=== PATIENT | female | born 1975 | race Caucasian/White ===

== ENCOUNTER → 2016-05-09 | Outpatient (REF) | payer OTHER | LOC: M LAB REF 16:55 | PROVIDERS: ATTEND Physician Assistant Medical | DX: R30.0 Dysuria (principal) ==

== ENCOUNTER → 2016-08-10 | Outpatient (REF) | payer OTHER | LOC: M LAB REF 16:51 | PROVIDERS: ATTEND Specialist | DX: Z12.4 Encounter for screening for malignant neoplasm of cervix (principal) ==

== ENCOUNTER → 2017-03-23 | Outpatient (REF) | payer OTHER ==
[2017-03-23 13:26] LABS: ALBUMIN 3.8 GM/DL (3.2-5.2); ALBUMIN/GLOBULIN RATIO 1.06 (1.00-1.93); ALKALINE PHOSPHATASE 49 U/L (45-117); ALT/SGPT 19 U/L (12-78); ANION GAP 8 MEQ/L (8-16); AST/SGOT 10 U/L (7-37); BILIRUBIN,TOTAL 0.3 MG/DL (0.2-1.0); BLOOD UREA NITROGEN 14 MG/DL (7-18); CALCIUM LEVEL 8.6 MG/DL (8.5-10.1); CARBON DIOXIDE LEVEL 27 MEQ/L (21-32); CHLORIDE LEVEL 104 MEQ/L (98-107); CHOLESTEROL LEVEL 163 MG/DL (<200); CREATININE FOR GFR 0.81 MG/DL (0.55-1.02); GLOMERULAR FILTRATION RATE > 60.0 (>58); GLUCOSE, FASTING 113 MG/DL (70-105); POTASSIUM SERUM 4.3 MEQ/L (3.5-5.1); SODIUM LEVEL 139 MEQ/L (136-145); TOTAL PROTEIN 7.4 GM/DL (6.4-8.2); TRIGLYCERIDES LEVEL 259 MG/DL (<150)
== END ==
LOC: M LABDRAW1 11:05
PROVIDERS: ATTEND Family Medicine
DX: Z00.00 Encounter for general adult medical examination without abnormal findings (principal)

== ENCOUNTER → 2017-06-12 | Outpatient (CLI) | payer OTHER ==
[2017-06-12 20:01] LABS: HCG, SERUM QUANTITATIVE 6 MIU/ML
== END ==
LOC: M SMT 14:18
DX: O20.0 Threatened abortion (principal)
CPT/HCPCS: 84702

== ENCOUNTER → 2017-06-15 | Outpatient (CLI) | payer OTHER ==
[2017-06-15 14:08] LABS: HCG, SERUM QUANTITATIVE < 1.0 MIU/ML
== END ==
LOC: M SMT 08:12
DX: O20.0 Threatened abortion (principal)
CPT/HCPCS: 84702

== ENCOUNTER → 2018-03-26 | Outpatient (REF) | payer OTHER, SELFPAY ==
[2018-03-26 13:25] LABS: BLOOD UREA NITROGEN 15 MG/DL (7-18); CARBON DIOXIDE LEVEL 25 MEQ/L (21-32); CHLORIDE LEVEL 106 MEQ/L (98-107); CREATININE FOR GFR 0.91 MG/DL (0.55-1.30); GLOMERULAR FILTRATION RATE > 60.0 (>58); GLUCOSE, FASTING 108 MG/DL (70-100); POTASSIUM SERUM 4.7 MEQ/L (3.5-5.1); SODIUM LEVEL 140 MEQ/L (136-145)
[2018-03-26 13:26] LABS: ALBUMIN 3.6 GM/DL (3.2-5.2); ALBUMIN/GLOBULIN RATIO 1.03 (1.00-1.93); ALKALINE PHOSPHATASE 56 U/L (45-117); ALT/SGPT 21 U/L (12-78); ANION GAP 9 MEQ/L (8-16); AST/SGOT 16 U/L (7-37); BILIRUBIN,TOTAL 0.3 MG/DL (0.2-1.0); CALCIUM LEVEL 8.5 MG/DL (8.5-10.1); CHOLESTEROL LEVEL 154 MG/DL (<200); CHOLESTEROL RISK RATIO 4.967 (<5); HDL CHOLESTEROL 31 MG/DL (>40); LDL CHOLESTEROL 79 MG/DL (<100); NON-HDL-C 123 MG/DL; TOTAL PROTEIN 7.1 GM/DL (6.4-8.2); TRIGLYCERIDES LEVEL 219 MG/DL (<150)
[2018-03-26 14:21] LABS: ESTIMATED AVERAGE GLUCOSE 131 MG/DL (60-110); HEMOGLOBIN A1c 6.2 %
== END ==
LOC: M LABDRAW1 09:18
DX: Z00.00 Encounter for general adult medical examination without abnormal findings (principal)
CPT/HCPCS: 80053

== ENCOUNTER → 2018-05-16 | Outpatient (REF) | payer OTHER ==
[2018-05-16 13:36] LABS: BASO % 0.5 % (0.0-1.0); EOS # 0.2 10^3/uL (0.0-0.50); EOS % 3.3 % (0.0-3.0); HEMATOCRIT 38.4 % (36.0-47.0); HEMOGLOBIN 13.3 g/dl (12.0-15.5); LYMPH # 2.2 10^3/uL (1.5-4.5); LYMPH % 33.6 % (24.0-44.0); MEAN CORPUSCULAR HEMOGLOBIN 30.8 pg (27.0-33.0); MEAN CORPUSCULAR HGB CONC 34.6 g/dl (32.0-36.5); MEAN CORPUSCULAR VOLUME 88.9 fl (80.0-96.0); MONO # 0.8 10^3/uL (0.0-0.8); MONO % 11.8 % (0.0-5.0); NEUTROPHILS # 3.3 10^3/uL (1.8-7.7); NEUTROPHILS % 50.3 % (36.0-66.0); PLATELET COUNT, AUTOMATED 310 10^3/uL (150-450); RED BLOOD COUNT 4.32 10^6/uL (4.00-5.40); WHITE BLOOD COUNT 6.6 10^3/uL (4.0-10.0)
[2018-05-16 14:00] LABS: ALBUMIN 4.1 GM/DL (3.2-5.2); ALT/SGPT 26 U/L (12-78); BILIRUBIN,TOTAL 0.5 MG/DL (0.2-1.0); BLOOD UREA NITROGEN 12 MG/DL (7-18); CALCIUM LEVEL 9.1 MG/DL (8.5-10.1); CARBON DIOXIDE LEVEL 28 MEQ/L (21-32); CHLORIDE LEVEL 102 MEQ/L (98-107); CREATININE FOR GFR 0.78 MG/DL (0.55-1.30); GLOMERULAR FILTRATION RATE > 60.0 (>58); GLUCOSE, FASTING 91 MG/DL (70-100); POTASSIUM SERUM 4.3 MEQ/L (3.5-5.1); SODIUM LEVEL 139 MEQ/L (136-145); TOTAL PROTEIN 7.8 GM/DL (6.4-8.2)
== END ==
LOC: M LABDRAW1 12:15
PROVIDERS: ATTEND Family Medicine
DX: R10.31 Right lower quadrant pain (principal)

== ENCOUNTER → 2018-06-28 | Outpatient (REF) | payer OTHER ==
[2018-06-28 14:41] LABS: HEMOGLOBIN A1c 5.9 %
== END ==
LOC: M LABDRAW1 12:40
PROVIDERS: ATTEND Family Medicine
DX: R73.01 Impaired fasting glucose (principal)

== ENCOUNTER → 2019-01-02 | Outpatient (CLI) | payer OTHER ==
[2019-01-02 09:48] LABS: BASO % 0.2 % (0.0-1.0); EOS # 0.1 10^3/uL (0.0-0.5); EOS % 1.5 % (0.0-3.0); HEMATOCRIT 38.1 % (36.0-47.0); LYMPH # 2.3 10^3/uL (1.5-5.0); LYMPH % 24.1 % (24.0-44.0); MEAN CORPUSCULAR HEMOGLOBIN 30.7 pg (27.0-33.0); MEAN CORPUSCULAR HGB CONC 34.1 g/dl (32.0-36.5); MEAN CORPUSCULAR VOLUME 90.1 fl (80.0-96.0); MONO # 0.5 10^3/uL (0.0-0.8); MONO % 5.8 % (0.0-5.0); NEUTROPHILS # 6.3 10^3/uL (1.5-8.5); NEUTROPHILS % 67.7 % (36.0-66.0); PLATELET COUNT, AUTOMATED 295 10^3/uL (150-450); RED BLOOD COUNT 4.23 10^6/uL (4.00-5.40); WHITE BLOOD COUNT 9.4 10^3/uL (4.0-10.0)
[2019-01-02 10:16] LABS: CREATININE,RANDOM URINE 39.2 MG/DL; TOTAL PROTEIN,RANDOM URINE 6.4 MG/DL (0.0-12.0)
[2019-01-02 10:19] LABS: ALT/SGPT 16 U/L (12-78); BILIRUBIN,TOTAL 0.3 MG/DL (0.2-1.0); GLOMERULAR FILTRATION RATE > 60.0 (>58); GLUCOSE CHALLENGE TEST 1 HOUR 185 MG/DL (LESS THAN 140); LDH LACTATE DEHYDROGENASE 145 U/L (84-246); URIC ACID 5.5 MG/DL (2.6-6.0)
[2019-01-02 10:25] LABS: HEMOGLOBIN A1c 5.8 %
[2019-01-02 10:36] LABS: RUBELLA IgG QUALITATIVE SUSCEPTIBLE (IMMUNE)
[2019-01-02 11:04] LABS: HEPATITIS C VIRUS ABY INDEX 0.1 INDEX (<0.8)
[2019-01-02 11:05] LABS: HIV 1&2 SCREEN CENTAUR NEGATIVE (NEGATIVE)
[2019-01-02 13:02] LABS: CHLAMYDIA DNA AMPLIFICATION NEGATIVE (NEGATIVE); GC DNA AMPLIFICATION NEGATIVE (NEGATIVE)
== END ==
LOC: M LAB 08:05
PROVIDERS: ATTEND Advanced Practice Midwife
DX: Z34.81 Encounter for supervision of other normal pregnancy, first trimester (principal)

== ENCOUNTER → 2019-01-14 | Outpatient (CLI) | payer OTHER | LOC: M LAB 07:13 | PROVIDERS: ATTEND Advanced Practice Midwife | DX: O09.522 Supervision of elderly multigravida, second trimester (principal) ==

== ENCOUNTER → 2019-01-28 | Outpatient (CLI) | payer OTHER, SELFPAY ==
--- NOTE | 2019-01-29 08:11 | REP ---
Obstetric ultrasound for anatomy: There is a single intrauterine gestation in a vertex presentation. There is movement and cardiac activity. The heart rate is 153 beats per minute. The placenta is posterior. There is no previa or abruptio. The placenta is grade zero. The amniotic fluid volume subjectively is normal. The cervix measures 6.1 cm length. Gestational age by today's study is 19 weeks 6 days/JERRY 06/18/2019. Gestational age by LMP is 19 weeks 3 days/JERRY 06/21/2019. weight is 330 grams/0 pounds, 11 ounces. This is the 71st percentile for 19 weeks 3 days. The following anatomic structures are identified and are unremarkable: Cranium, choroid plexus, cavum septum pellucidum, cerebellum, diaphragm, stomach, cord insertion, three-vessel cord, kidneys, bladder, spine and upper lower extremities. Suboptimally demonstrated because of position are: Facial features, lungs, four-chamber heart and cardiac right and left ventricular outflow tracts. A followup study dedicated to these structures might be considered. Electronically Signed by Woody Graham MD 01/29/2019 08:03 A
== END ==
LOC: M RAD 17:17
PROVIDERS: ATTEND Advanced Practice Midwife
DX: O09.522 Supervision of elderly multigravida, second trimester (principal)

== ENCOUNTER → 2019-02-15 | Outpatient (CLI) | payer OTHER ==
--- NOTE | 2019-02-16 07:58 | REP ---
OB ULTRASOUND: Real-time sonographic evaluation of gravid uterus performed. Transabdominal and endovaginal technique is utilized. There is a single living intrauterine gestation, estimated gestational age 22 weeks 0 days, EDC 06/21/2019. Today's measurements indicate appropriate growth. BPD 54 mm = 22 weeks 3 days, 61st percentile HC 205 mm = 22 weeks 4 days, 69th percentile AC 166 mm = 21 weeks 4 days, 41st percentile Femur length 36 mm = 21 weeks 3 days, 36th percentile HC/AC ratio 1.24 is slightly above normal range of 1.04 to 1.23. Estimated weight 442 grams, 35th percentile. heart rate 136 beats per minute. SEEN/GROSSLY UNREMARKABLE Lateral ventricles Yes Posterior fossa Yes Upper lip Yes Four-chamber heart Yes LVOT Yes RVOT Yes Stomach Yes Cord insertion Yes Three vessel cord Yes Kidneys Yes Bladder Yes Spine No position variable. Placenta is posterior and grade 0. Inferior aspect of the placenta appears to totally cover the internal cervical os, compatible with complete placenta previa. Amniotic fluid appears within normal limits. Cervix is closed and measures 5.3 cm in length. There appears to be an anterior uterine fibroid measuring 2.5 x 3.3 x 1.9 cm. Electronically Signed by Woody Matamoros MD 02/16/2019 03:40 P
== END ==
LOC: M RAD 17:13
PROVIDERS: ATTEND Advanced Practice Midwife
DX: O09.522 Supervision of elderly multigravida, second trimester (principal); Z3A.22 22 weeks gestation of pregnancy

== ENCOUNTER → 2019-03-19 | Outpatient (REF) | payer OTHER ==
[2019-03-19 19:42] LABS: BASO % 0.1 % (0.0-1.0); EOS # 0.2 10^3/uL (0.0-0.5); EOS % 1.9 % (0.0-3.0); HEMATOCRIT 36.3 % (36.0-47.0); HEMOGLOBIN 12.2 g/dl (12.0-15.5); LYMPH # 2.6 10^3/uL (1.5-5.0); LYMPH % 30.5 % (24.0-44.0); MEAN CORPUSCULAR HGB CONC 33.6 g/dl (32.0-36.5); MEAN CORPUSCULAR VOLUME 92.1 fl (80.0-96.0); MONO # 0.7 10^3/uL (0.0-0.8); MONO % 8.3 % (0.0-5.0); NEUTROPHILS # 4.9 10^3/uL (1.5-8.5); NEUTROPHILS % 58.5 % (36.0-66.0); PLATELET COUNT, AUTOMATED 276 10^3/uL (150-450); RED BLOOD COUNT 3.94 10^6/uL (4.00-5.40); WHITE BLOOD COUNT 8.4 10^3/uL (4.0-10.0)
[2019-03-19 20:06] LABS: HEMOGLOBIN A1c 5.9 %
== END ==
LOC: M LABDRWAD 19:16
PROVIDERS: ATTEND Specialist
DX: O24.112 Pre-existing type 2 diabetes mellitus, in pregnancy, second trimester (principal); Z3A.00 Weeks of gestation of pregnancy not specified

== ENCOUNTER → 2019-04-01 | Outpatient (CLI) | payer MEDICAID, OTHER ==
--- NOTE | 2019-04-01 19:17 | REPVR ---
PROCEDURE INFORMATION: Exam: US After First Trimester, Transabdominal Exam date and time: 04/01/2019 6:23 PM Age: 43 years old Clinical history: Lmp or gestational age (in weeks): 28w3d; Other: Follow up anatomy; ; Additional info: Preg 27 wks f/u anatomy TECHNIQUE: Imaging protocol: Real-time transabdominal obstetrical ultrasound of the maternal pelvis and a second or third trimester with image documentation. COMPARISON: US OBS FOLL UP OR REPEAT EACH GES 02/15/2019 5:30 PM FINDINGS: GESTATION: Gestation: There has been appropriate interval growth in comparison to the prior study. structural survey unremarkable. This includes intracranial structures, face, lungs, diaphragm, umbilical cord insertion demonstrating three-vessel cord, kidneys and bladder. spine, extremities, 4 chambered view of the heart not evaluated. Heart rate: heart rate is 132 beats per minute. Presentation: Fetus in breech position. Placenta: Placenta is posterior and low-lying consistent with marginal previa with minimal migration in comparison to the prior study. Amniotic fluid: Amniotic fluid fluid index is 16.3 cm. BIOMETRY: Estimated gestational age: Gestational age based on LMP of 09/14/2018 is 28 weeks 3 days. This is persistent with ultrasound measurements. Estimated weight: Estimated weight is 1391 g (67 percentile). Biparietal diameter: This BPD 7.5 cm Head circumference: Head circumference 28.2 cm. Abdominal circumference: Abdominal circumference 24.8 cm. Femur length: 5.6 cm. MATERNAL: Cervix: Cervix measures 5.4 cm. There is no bulging membranes or funneling. IMPRESSION: Low-lying posterior placenta consistent with a marginal previa which has minimally migrated in comparison to the prior study. Otherwise unremarkable gestation at 28 weeks 3 days. There has been appropriate interval growth. Electronically signed by: Javier Ames On 04/01/2019 19:17:03 PM
== END ==
LOC: M RAD 17:51
PROVIDERS: ATTEND Specialist
DX: O44.02 Complete placenta previa NOS or without hemorrhage, second trimester (principal); Z3A.27 27 weeks gestation of pregnancy

== ENCOUNTER → 2019-04-29 | Outpatient (CLI) | payer OTHER ==
--- NOTE | 2019-04-29 19:38 | REP ---
Clinical: Growth evaluation. Comparison: 04/01/2019 . Findings: Examination demonstrates a single live intrauterine in cephalic presentation. motion is identified by technologist. Placenta is noted posterior grade I I and low-lying. Amniotic fluid volume is normal. Cervix measures 3.6 cm in length and appears closed. No evidence for nuchal cord. Gestational age by LMP 32 weeks 4 days with JERRY 06/21/2019 . Gestational age by current measurements 34 weeks 7 days. FHR equals 135 beats per minute. BPD 8.4 cm 33 weeks 6 days HC 32.8 cm 37 weeks 3 days AC 30.8 cm 34 weeks 5 days FL 6.5 cm 33 weeks 4 days HC/AC ratio 1.06 Estimated weight 2463 grams ( 89th percentile). Amniotic fluid index: 18.9 cm (8.5 - 24.3). Impression: 1. Single live intrauterine in cephalic presentation demonstrating appropriate weight/growth. 2. Posterior low-lying placenta approximately 1 cm from the closed internal os. 3. Known anterior fibroid measuring approximately 3.6 cm maximal diameter.
== END ==
LOC: M WHC 13:18
PROVIDERS: ATTEND Advanced Practice Midwife
DX: O24.113 Pre-existing type 2 diabetes mellitus, in pregnancy, third trimester (principal); Z3A.32 32 weeks gestation of pregnancy; E11.9 Type 2 diabetes mellitus without complications

== ENCOUNTER → 2019-05-06 | Outpatient (CLI) | payer OTHER ==
--- NOTE | 2019-05-07 02:27 | REP ---
Clinical: well-being n. Comparison: 05/06/2019 . Findings: Examination demonstrates a single live intrauterine in cephalic presentation. motion is identified by technologist. Placenta is noted posterior, grade II and marginal/low-lying appearing less than 1 cm from the closed internal os. Amniotic fluid volume is normal. Cervix measures 4.2 cm in length and appears closed. No evidence for nuchal cord. Gestational age by LMP 33 weeks 3 days with JERRY 06/21/2019 . Gestational age by current measurements 33 weeks 6 days with JERRY 06/18/2019 . FHR equals 143 beats per minute. Amniotic fluid index: 26.0 cm (8.2 - 24.6) Biophysical profile score: 11/29 Estimated weight 2246 grams ( 50th percentile). Anatomical assessment demonstrates normal structures including cranium, choroid plexus, cavum, cerebellum/posterior fossa, facial features, lungs, four-chamber heart/ventricular outflow tracts, diaphragm, stomach, cord insertion/three-vessel cord, kidneys/bladder, spine, and extremities. Impression: 1. Single live advanced gestation in cephalic presentation demonstrating appropriate growth. 2. Posterior grade II marginal/low-lying placenta less than 1 cm from the closed internal os. 3. Mild polyhydramnios.
== END ==
LOC: M WHC 13:03
PROVIDERS: ATTEND Advanced Practice Midwife
DX: O24.113 Pre-existing type 2 diabetes mellitus, in pregnancy, third trimester (principal); Z3A.00 Weeks of gestation of pregnancy not specified

== ENCOUNTER → 2019-05-14 | Outpatient (CLI) | payer OTHER ==
[~2019-05-14] MED LIST: CINN500C2 PO; ECOT81TA5 PO; INSUNSD SC; MULTTAB20 PO; VITA200028 PO
--- NOTE | 2019-05-15 04:02 | REP ---
Clinical: well-being Comparison: 05/06/2019 . Findings: Examination demonstrates a single live intrauterine in cephalic presentation. motion is identified by technologist. Placenta is noted posteriorly and grade I I. Cervix measures 3.1 cm in length and appears closed. Gestational age by LMP 34 weeks 4 days with JERRY 06/21/2019 . Gestational age by first ultrasound 34 weeks 4 days with JERRY 06/21/2019 . FHR equals 158 beats per minute. Biophysical profile score: 8/8 Amniotic fluid index: 26.1 cm (8.0 - 24.9). Impression: 1. Marginal posterior placenta based on history with a close cervical os and cervical length of 3.1 cm. 2. Biophysical profile score normal. 3. Amniotic fluid volume is above normal range.
== END ==
LOC: M WHC 13:10
PROVIDERS: ATTEND Advanced Practice Midwife
DX: O24.113 Pre-existing type 2 diabetes mellitus, in pregnancy, third trimester (principal)

== ENCOUNTER → 2019-05-21 | Outpatient (REF) | payer OTHER, MEDICAID | LOC: M SFHCWAGY 11:13 | PROVIDERS: ATTEND Specialist | DX: Z36.85 Encounter for antenatal screening for Streptococcus B (principal) ==

== ENCOUNTER 2019-05-30 05:38 | Inpatient (IN) | payer OTHER ==
[~2019-05-30] VITALS: Ht 160 cm; Wt 98.5 kg
[2019-05-30] MEDS ORDERED: LR 800 ML IV ONE (06:00)
[2019-05-30] MEDS ORDERED: BICITRA 30ML SOLN UDC PO ONE (06:00)
[2019-05-30] MEDS ORDERED: ceFAZolin SOD 2 GM in IV 1 EA IV ONE (06:00)
[2019-05-30 06:44] LABS: HEMATOCRIT 39.6 % (36.0-47.0); HEMOGLOBIN 13.2 g/dl (12.0-15.5); MEAN CORPUSCULAR HGB CONC 33.3 g/dl (32.0-36.5); PLATELET COUNT, AUTOMATED 232 10^3/uL (150-450); RED BLOOD COUNT 4.26 10^6/uL (4.00-5.40); WHITE BLOOD COUNT 9.5 10^3/uL (4.0-10.0)
[2019-05-30 06:59] LABS: GLUCOSE, FASTING 113 MG/DL (70-100)
[2019-05-30] MEDS ORDERED: LR 1,000 ML IV SCH (07:00)
[2019-05-30] MEDS ORDERED: MORPHINE PRES-FREE INJ 10 MG/10 ML VIAL (J2274) As Ordered ONE (07:25)
[2019-05-30] MEDS ORDERED: OXYTOCIN INJ 10 UNITS/ML VIAL (J2590) As Ordered ONE ×2 (07:26→07:27)
[2019-05-30] MEDS ORDERED: NALBUPHINE HCL 10 MG/ML AMP (J2300) IV PRN ×2 (07:52→09:15)
[2019-05-30] MEDS ORDERED: NALOXONE INJ 0.4 MG/1 ML VIAL (J2310) IV PRN ×2 (07:52)
[2019-05-30] MEDS ORDERED: ONDANSETRON 4MG/2ML VIAL (J2405) IV PRN ×3 (07:52→09:15)
[2019-05-30] MEDS ORDERED: METOCLOPRAMIDE INJ 10MG/2ML VIAL (J2765) IV PRN (07:52)
[2019-05-30] MEDS ORDERED: diphenhydrAMINE INJ 50MG/ML VIAL (J1200) IV PRN (07:52)
[2019-05-30] MEDS ORDERED: ePHEDrine SULFATE 25 MG/5 ML(5MG/ML) SYRINGE As Ordered ONE (08:03)
[2019-05-30] MEDS ORDERED: PHENYLephrine HCL 500 MCG/5 ML (100MCG/ML) SYRINGE (J2370) As Ordered ONE (08:03)
[2019-05-30] MEDS ORDERED: ONDANSETRON 4MG/2ML VIAL (J2405) As Ordered ONE (08:25)
[2019-05-30] MEDS ORDERED: KETOROLAC 60 MG/2 ML VIAL (J1885) As Ordered ONE (08:25)
[2019-05-30] MEDS ORDERED: dexameTHASONE 4 MG/ML 1ML VIAL (J1100) As Ordered ONE (08:25)
[2019-05-30] MEDS ORDERED: OXYTOCIN DRIP 30 UNITS in IV 1 EA IV SCH (08:58)
[2019-05-30] MEDS ORDERED: RHOGAM 300 MCG (1500 IU) INJ (J2790) IM SCH (09:00)
[2019-05-30] MEDS ORDERED: PERCOCET 5MG/325MG TAB PO PRN ×3 (09:00→09:15)
[2019-05-30] MEDS ORDERED: DOCUSATE SODIUM 100 MG CAP PO PRN (09:00)
[2019-05-30] MEDS ORDERED: MEASLES,MUMPS,RUBELLA VACCINE INJ (MMR-II) (90707) SC SCH (09:00)
[2019-05-30] MEDS: PRENATAL VITAMINS CHEWABLE TABLET PO SCH (09:00)
[2019-05-30] MEDS ORDERED: OXYTOCIN 30 UNITS IN 0.9% NaCl 500ML IV BAG (J2590) As Ordered ONE (09:09)
[2019-05-30] MEDS ORDERED: fentaNYL 100 MCG/2 ML INJECTION (J3010) IV PRN (09:15)
[2019-05-30] MEDS ORDERED: MEPERIDINE INJ 25 MG/ML VIAL (J2175) IV PRN (09:15)
[2019-05-30] MEDS ORDERED: HYDROMORPHONE HCL 0.5 MG/ 0.5 ML SYRINGE (J1170 PER 1) IV PRN (09:15)
[2019-05-30 10:35] VITALS: BP 95/54
--- NOTE | 2019-05-30 10:57 | RO ---
DATE OF PROCEDURE: 05/30/2019 PREPROCEDURE DIAGNOSIS: 37 weeks, complete posterior placenta previa. POSTPROCEDURE DIAGNOSIS: 37 weeks, complete posterior placenta previa. PROCEDURE: Primary low transverse section. SURGEON: Donn Garcia MD WOODS OVERSEER: Funmi Holly CNM ANESTHESIA: Spinal. ESTIMATED BLOOD LOSS: 1000 mL. URINE OUTPUT: 100 mL. FINDINGS: Viable male infant, weight unknown at the time of the dictation. scores of 8 and 9. Complete posterior placenta previa noted. Normal uterus, fallopian tubes, and ovaries. Evidence of prior tubal sterilization. DESCRIPTION OF PROCEDURE: The patient was taken the operating room where spinal anesthesia was induced. She was prepped and draped in a sterile fashion in the supine position. Randhawa catheter was placed. Pfannenstiel skin incision was made with a scalpel and carried through the fascia. The fascia was nicked and extended. The fascia was dissected off the rectus muscles. The peritoneal cavity was entered. Bladder flap was created. Mobius retractor was placed. Curvilinear incision was made in the lower uterine segment until clear fluid was noted. This was extended manually. The was delivered in the vertex position without difficulty. The cord was doubly clamped and cut. The was handed off to the awaiting aboriginal education teacher. The placenta was expressed. The placenta was noted to be a complete posterior placenta previa at the time of surgery. The uterus was closed with 0 Vicryl in a running locked fashion. A second imbricating layer of 0 Vicryl was placed. Good hemostasis was noted. Perineum was closed with 2-0 Vicryl in a running fashion. The fascia was closed with 0 Vicryl in a running fashion. Deep layer was irrigated and closed with 2-0 chromic. Skin was closed with 4-0 Monocryl subcuticular sutures. Sponge, instrument and needle counts were correct. Funmi Holly CNM assisted throughout the procedure from beginning to end. She was indispensable to the successful completion of the procedure. She helped create all layers in the incision. She helped deliver fetus and close all layers.
[2019-05-30 11:05] VITALS: BP 128/68
[2019-05-30 12:05] VITALS: BP 118/58
[2019-05-30 13:05] VITALS: BP 117/58
[2019-05-30] MEDS: LR 1,000 ML IV SCH ×2 (13:21→16:58)
[2019-05-30 14:30] VITALS: BP 101/56
[2019-05-30] MEDS: KETOROLAC 30 MG/ML VIAL (J1885) IV SCH ×2 (15:06→21:17)
[2019-05-30 16:36] VITALS: BP 107/57
[2019-05-31] MEDS: LR 1,000 ML IV SCH ×2 (00:58→08:58)
[2019-05-31 03:00] VITALS: BP 101/54
[2019-05-31] MEDS: KETOROLAC 30 MG/ML VIAL (J1885) IV SCH (03:39)
[2019-05-31 06:00] VITALS: BP 104/55
[2019-05-31 07:36] LABS: HEMATOCRIT 29.3 % (36.0-47.0); MEAN CORPUSCULAR HEMOGLOBIN 31.4 pg (27.0-33.0); MEAN CORPUSCULAR HGB CONC 33.1 g/dl (32.0-36.5); MEAN CORPUSCULAR VOLUME 94.8 fl (80.0-96.0); PLATELET COUNT, AUTOMATED 171 10^3/uL (150-450); RED BLOOD COUNT 3.09 10^6/uL (4.00-5.40); WHITE BLOOD COUNT 6.2 10^3/uL (4.0-10.0)
[2019-05-31 07:42] LABS: HEMOGLOBIN 9.7 g/dl (12.0-15.5)
[2019-05-31] MEDS ORDERED: ADACEL/BOOSTRIX VACCINE (DIPHTH/PERTUSS/ACELL/TETANUS)0.5ML SYR (90715) IM ONE (09:00)
[2019-05-31] MEDS ORDERED: INFLUENZA QUADRIVALENT PF VACCINE 0.5ML SYRINGE (90686) IM ONE (09:00)
[2019-05-31] MEDS: PRENATAL VITAMINS CHEWABLE TABLET PO SCH (09:15)
[2019-05-31 10:00] VITALS: BP 118/56
[2019-05-31] MEDS: IBUPROFEN 800 MG TAB PO SCH ×2 (12:15→19:30)
[2019-05-31 14:00] VITALS: BP 113/54
[2019-05-31 18:43] VITALS: BP 127/60
[2019-05-31 22:00] VITALS: BP 98/49
[2019-06-01 02:00] VITALS: BP 116/58
[2019-06-01] MEDS: IBUPROFEN 800 MG TAB PO SCH ×3 (02:30→18:39)
[2019-06-01 06:35] VITALS: BP 99/56
--- NOTE | 2019-06-01 07:27 | IPNPDOC ---
Text Note Date of Service The patient was seen on 06/01/19. NOTE Post-op day #2 S: Patient reports pain is controlled, ambulating and voiding without difficulty. Tolerating PO intake. Patient is pumping. Infant is in NICU O: Alert and oriented. No breast tenderness. Fundus is firm at U, abdomen soft and non-tender. Abdominal dressing intact, old serosanguinous drainage noted. A: Post-op day #2, establishing P: Routine care and pumping support Pain medications as needed Plan for discharge tomorrow VS,Fishbone, I+O VS, Fishbone, I+O Vital Signs Date Time Temp Pulse Resp B/P (MAP) Pulse Ox O2 Delivery O2 Flow Rate FiO2 06/01/19 06:35 98.0 82 15 99/56 (70) 97 Room Air Waleska Collins CNM Jun 01, 2019 07:27
[2019-06-01] MEDS ORDERED: INFLUENZA QUADRIVALENT PF VACCINE 0.5ML SYRINGE (90686) IM ONE (09:00)
[2019-06-01] MEDS ORDERED: ADACEL/BOOSTRIX VACCINE (DIPHTH/PERTUSS/ACELL/TETANUS)0.5ML SYR (90715) IM ONE (09:00)
[2019-06-01] MEDS: PRENATAL VITAMINS CHEWABLE TABLET PO SCH (09:37)
[2019-06-01 18:00] VITALS: BP 125/62
[2019-06-01 22:01] VITALS: BP 116/59
[2019-06-02] MEDS: IBUPROFEN 800 MG TAB PO SCH (03:29)
[2019-06-02 06:36] VITALS: BP 123/68
[2019-06-02] MEDS ORDERED: IBUP80TA PO (07:23)
[2019-06-02] MEDS ORDERED: PERCOCET PO (07:23)
--- NOTE | 2019-06-02 08:09 | DS.PDOC ---
Discharge Summary General Date of Admission May 30, 2019 at 05:38 Date of Discharge 06/02/19 Attending Physician: DANNI NAVARRO MD Discharge Summary PROCEDURES PERFORMED DURING STAY: #1, section 2. Spinal anesthesia. ADMITTING DIAGNOSES: 1. Placenta previa. 2. Intrauterine at 37 weeks. DISCHARGE DIAGNOSES: 1., Placenta previa. 2. Intrauterine at 37 weeks. COMPLICATIONS/CHIEF COMPLAINT: Placenta Previa. HISTORY OF PRESENT ILLNESS:, 44-year-old at 37 weeks, presents for scheduled section due to placenta previa at 37 weeks. HOSPITAL COURSE:, Underwent uncomplicated section. Productive of a liveborn male infant, Apgars 8 and 9. Estimated blood loss was 1 L DISCHARGE MEDICATIONS: Please see below. ALLERGIES: Please see below. PHYSICAL EXAMINATION ON DISCHARGE: VITAL SIGNS: Please see below. GENERAL: Well-appearing ABDOMINAL EXAMINATION: Appropriately tender, nondistended. Incision dressed EXTREMITIES:. Negative calf tenderness LABORATORY DATA: Please see below. ACTIVITY: As tolerated. DIET: Regular DISCHARGE PLAN:. 1. Remain on pelvic rest for 6 weeks. 2. Reports severe pain, heavy vaginal bleeding, fever, incisional issues. 3. Follow with Dr. Pendleton in 6 weeks DISPOSITION: . DISCHARGE INSTRUCTIONS: 1. As above. DISCHARGE CONDITION: Stable. Vital Signs/I&Os Vital Signs Date Time Temp Pulse Resp B/P (MAP) Pulse Ox O2 Delivery O2 Flow Rate FiO2 06/02/19 06:36 97.5 83 18 123/68 (86) Room Air 06/01/19 18:00 98 Discharge Medications Scheduled Aspirin (Ecotrin) 81 Mg Tablet.dr 81 MG PO DAILY, (Reported) Cinnamon Bark (Cinnamon) 500 Mg Capsule, 500 MG PO DAILY, (Reported) Ergocalciferol (Vitamin D2) (Vitamin D2) 2,000 Unit Tablet, 2,000 UNIT PO DAILY, (Reported) Ibuprofen (Ibuprofen) 800 Mg Tablet, 800 MG PO Q8H No122/Iron/Folic Acid ( Multi Tablet) 1 Each Tablet, 1 TAB PO DAILY, (Reported) Scheduled PRN Oxycodone/Acetaminophen (Oxycodone-Acetaminophen 5-325) 1 Each Tablet, 1-2 TAB PO Q6H PRN for SEVERE PAIN (PS 8-10) Allergies Coded Allergies: Sulfa (Sulfonamide Antibiotics) (Verified Allergy, Intermediate, muscle and joint pain, 05/16/19) GERMAIN GILMORE MD. Jun 02, 2019 08:09
[2019-06-02] MEDS: PRENATAL VITAMINS CHEWABLE TABLET PO SCH (08:16)
--- NOTE | 2019-06-02 08:46 | OBDS ---
[facility] Obstetrical Discharge Sum. Obstetrical Discharge Summary Date: Jun 01, 2019 Time: 18:00 : 2 Term: 1 Livin VDRL: Non-Reactive Rh: Positive Rubella: Immune Labor This patient is a 20-year-old 2, para 0, presents at 41 weeks for induction of labor on 05/28/2019, she underwent a section for arrested dilation estimated blood loss at time of surgery is 500ml. Surgery was productive of a liveborn female infant, Apgars 8 and 9, weighing 7 lbs. 15 oz., Mrs. Larose had a delayed hemorrhage. On postoperative day #1 she had hemoglobin of 6.4 underwent a blood transfusion with 4units of PRBCs. . Discharge hemoglobin of 8.4 with no further bleeding. Sex: Female Anesthesia: Regional Anesthesia A/P, Post Course List any complications Admission diagnosis: Postdate induction Discharge diagnosis: Arrested dilation Condition at Discharge: stable Discharge Instructions: Home Activity: As tolerated Diet:. Regular Medications: Percocet and ibuprofen Follow-up: 6 weeks GERMAIN GILMORE MD. Jun 02, 2019 08:46
[2019-06-02] MEDS ORDERED: ADACEL/BOOSTRIX VACCINE (DIPHTH/PERTUSS/ACELL/TETANUS)0.5ML SYR (90715) IM ONE (09:00)
[2019-06-02] MEDS ORDERED: INFLUENZA QUADRIVALENT PF VACCINE 0.5ML SYRINGE (90686) IM ONE (09:00)
== END 2019-06-02 08:30 | disposition home or self-care (01) | DRG 540 ==
LOC: M LDI 05:38 → M OBS 11:07
PROVIDERS: ADMIT Specialist; ATTEND Specialist
PROC: 10D00Z1 Extraction of Products of Conception, Low, Open Approach (ICD-10-PCS; principal; 2019-05-30 07:30)
DX: O44.03 Complete placenta previa NOS or without hemorrhage, third trimester (principal); Z88.2 Allergy status to sulfonamides; Z37.0 Single live birth; Z3A.37 37 weeks gestation of pregnancy

== ENCOUNTER 2019-09-22 21:23 | Emergency (ER) | payer MEDICAID, OTHER ==
[~2019-09-22] VITALS: Ht 160 cm; Wt 90.9 kg
[~2019-09-22 21:23] MED LIST changes: +IBUP80TA PO; +PERCOCET PO
[2019-09-22] MEDS ORDERED: KETOROLAC 30 MG/ML 1ML VIAL IV ONE (22:00)
[2019-09-22 22:19] LABS: BASO % 0.2 % (0.0-1.0); EOS # 0.2 10^3/uL (0.0-0.5); EOS % 1.7 % (0.0-3.0); HEMATOCRIT 38.4 % (36.0-47.0); HEMOGLOBIN 13.1 g/dl (12.0-15.5); LYMPH # 2.1 10^3/uL (1.5-5.0); LYMPH % 21.2 % (24.0-44.0); MEAN CORPUSCULAR HEMOGLOBIN 30.3 pg (27.0-33.0); MEAN CORPUSCULAR HGB CONC 34.1 g/dl (32.0-36.5); MEAN CORPUSCULAR VOLUME 88.9 fl (80.0-96.0); MONO # 1.3 10^3/uL (0.0-0.8); MONO % 13.3 % (0.0-5.0); NEUTROPHILS # 6.3 10^3/uL (1.5-8.5); PLATELET COUNT, AUTOMATED 280 10^3/uL (150-450); RED BLOOD COUNT 4.32 10^6/uL (4.00-5.40)
[2019-09-22 22:55] LABS: ALBUMIN 3.7 GM/DL (3.2-5.2); ALT/SGPT 25 U/L (12-78); BILIRUBIN,DIRECT 0.2 MG/DL (0.0-0.2); BILIRUBIN,TOTAL 0.8 MG/DL (0.2-1.0); CK-MB VALUE MASS < 1.0 NG/ML (<3.6); CPK CREATINE PHOSPHOKINASE 56 U/L (26-192); LIPASE 75 U/L (73-393); MB/CK RELATIVE INDEX 1.79 (< OR =4); TOTAL PROTEIN 7.5 GM/DL (6.4-8.2); TROPONIN I < 0.02 NG/ML (< 0.10)
--- NOTE | 2019-09-22 23:34 | REPVR ---
PROCEDURE INFORMATION: Exam: US Abdomen Limited, Right Upper Quadrant Exam date and time: 09/22/2019 11:17 PM Age: 44 years old Clinical indication: Abdominal pain; Acute; Additional info: Ruq abd pain TECHNIQUE: Imaging protocol: Real-time ultrasound of the abdomen with image documentation. Examination was focused on the right upper quadrant. COMPARISON: US OB 04/01/2019 6:14 PM FINDINGS: Liver: Unremarkable. Gallbladder: Cholelithiasis with borderline gallbladder wall thickening and trace pericholecystic fluid. Common bile duct: No stones. No ductal dilatation. Pancreas: Unremarkable as visualized. Right kidney: No mass. No definite stones. No hydronephrosis. IMPRESSION: Cholelithiasis with borderline gallbladder wall thickening and trace pericholecystic fluid. Acute cholecystitis cannot be excluded. If clinically indicated, HIDA scan would provide a more sensitive evaluation. Electronically signed by: Indra Garcia On 09/22/2019 23:33:43 PM
[2019-09-22 23:52] LABS: BLOOD UREA NITROGEN 15 MG/DL (7-18); CALCIUM LEVEL 8.1 MG/DL (8.5-10.1); CARBON DIOXIDE LEVEL 26 MEQ/L (21-32); CHLORIDE LEVEL 104 MEQ/L (98-107); CREATININE FOR GFR 0.76 MG/DL (0.55-1.30); GLOMERULAR FILTRATION RATE > 60.0 (>58); GLUCOSE, FASTING 98 MG/DL (70-100); POTASSIUM SERUM 3.9 MEQ/L (3.5-5.1); SODIUM LEVEL 140 MEQ/L (136-145)
[2019-09-23] MEDS ORDERED: ONDA4TAB6 PO (00:01)
[2019-09-23 00:03] LABS: HCG, SERUM QUALITATIVE NEGATIVE (NEGATIVE)
[2019-09-23 00:20] VITALS: BP 124/71
[2019-10-07] MEDS ORDERED: VITA200048 PO (11:04)
== END 2019-09-23 00:21 | disposition home or self-care (01) ==
LOC: M ED 21:23
DX: K80.00 Calculus of gallbladder with acute cholecystitis without obstruction (principal); R11.0 Nausea; Z88.2 Allergy status to sulfonamides; Z79.899 Other long term (current) drug therapy
CPT/HCPCS: 76705; 80047; 80048; 80076; 81001; 82550; 82553; 83690; 84703; 85025; 87086; 96374; 99284; J1885

== ENCOUNTER → 2019-10-18 | Outpatient (CLI) | payer OTHER ==
[~2019-10-18] MED LIST changes: +AUGM875T28 PO; +IBUP1TAB7 PO; +LEVO500T3 PO; +ONDA-83 PO; +ONDA4TAB6 PO; +VITA200048 PO; +VITAD1000T PO
== END ==
LOC: M LABSMTC 09:53
PROVIDERS: ATTEND Anesthesiology
DX: Z11.59 Encounter for screening for other viral diseases (principal); Z03.89 Encounter for observation for other suspected diseases and conditions ruled out
CPT/HCPCS: C9803; U0003

== ENCOUNTER 2019-10-21 06:06 | Day surgery (SDC) | payer OTHER ==
[~2019-10-21] VITALS: Ht 160 cm; Wt 91.1 kg
[~2019-10-21 06:06] MED LIST changes: -AUGM875T28 PO; -IBUP1TAB7 PO; -LEVO500T3 PO; -ONDA-83 PO; -VITAD1000T PO
[2019-10-21] MEDS ORDERED: LR 1,000 ML IV ONE (07:00)
[2019-10-21] MEDS ORDERED: BUPIVACAINE/EPIN 0.25% 30 ML VIAL As Ordered ONE (08:57)
[2019-10-21] MEDS ORDERED: dexameTHASONE 4 MG/ML 1ML VIAL (J1100 PER 1MG) As Ordered ONE (08:58)
[2019-10-21] MEDS ORDERED: ROCURONIUM BROMIDE 50 MG/5 ML VIAL As Ordered ONE (08:58)
[2019-10-21] MEDS ORDERED: fentaNYL 250 MCG/5 ML INJECTION (J3010) As Ordered ONE (08:58)
[2019-10-21] MEDS ORDERED: SUGAMMADEX SODIUM 500 MG/5 ML VIAL (BRIDION) As Ordered ONE (08:58)
[2019-10-21] MEDS ORDERED: ONDANSETRON 4MG/2ML VIAL As Ordered ONE (08:58)
[2019-10-21] MEDS ORDERED: KETOROLAC 60MG 2ML VIAL As Ordered ONE (08:58)
[2019-10-21] MEDS ORDERED: propofoL 200 MG/20 ML VIAL As Ordered ONE (08:58)
[2019-10-21] MEDS ORDERED: LIDOCAINE 2% 100MG/5ML SDV (FOR ANES.) As Ordered ONE (08:58)
[2019-10-21] MEDS ORDERED: MIDAZOLAM INJ 2MG/2ML VIAL (J2250 PER 1MG) As Ordered ONE (08:58)
[2019-10-21] MEDS ORDERED: oxyCODONE 5MG TAB PO PRN (10:45)
[2019-10-21] MEDS ORDERED: MORPHINE 2 MG/ML 1ML VIAL (J2270) IV PRN (10:45)
[2019-10-21] MEDS ORDERED: NORCO, ANEXSIA 5/325MG TABLET (HYDROcodone/ACETAMINOPHEN) PO PRN (10:45)
[2019-10-21] MEDS ORDERED: ONDANSETRON 4MG/2ML VIAL IV PRN (10:45)
[2019-10-21] MEDS ORDERED: LR 1,000 ML IV SCH (10:45)
[2019-10-21] MEDS ORDERED: fentaNYL 100 MCG/2 ML INJECTION (J3010) IV PRN (10:45)
[2019-10-21 13:22] VITALS: BP 125/60
--- NOTE | 2019-10-23 14:28 | RO ---
DATE OF PROCEDURE: 10/21/2019 PREOPERATIVE DIAGNOSIS: Cholelithiasis. POSTOPERATIVE DIAGNOSIS: Cholelithiasis with chronic cholecystitis. PROCEDURE: Robotic cholecystectomy. SURGEON: Dr. Woody Pena AMBULANCE OFFICER: None. ANESTHESIA: General. ESTIMATED BLOOD LOSS: 25. COMPLICATIONS: None. INDICATIONS FOR PROCEDURE: The patient is a 44-year-old female who presents right upper quadrant abdominal pain and found to have symptomatic cholelithiasis. Recommendation was to proceed with robotic cholecystectomy. The risks and benefits of the procedure not limited to, but including bleeding, infection, hernia formation, damage to surrounding structures and need for further surgery were discussed in detail with the patient. Informed consent was obtained and the procedure was planned. DESCRIPTION OF PROCEDURE: The patient was brought back to operating room seven after sufficient sedation and the abdomen was sterilely prepped and draped. Next, a time out was done to confirm proper patient and proper procedure. Following that, an 8 mm incision made in the left lower quadrant and Veress needle was inserted. The abdomen was insufflated to 15 mmHg. The Veress needle was then removed. An 8 mm robotic OptiVu port was used to gain access to the abdomen. Once the abdomen was entered, three more ports were placed across the upper abdomen. Once the ports were placed, the robot was docked. Next, from the console, the gallbladder had adhesions to the omentum. Those were all taken down using blunt and sharp dissection. The gallbladder was then elevated up towards the right shoulder. It was very thickened, encased in and peritoneum surrounding the entire thing. After careful dissection with blunt and sharp dissection, I was able to localize the cystic duct and cystic artery. Those were both then doubly clipped and cut. The gallbladder was then dissected from the gallbladder fossa using electrocautery. The gallbladder was then placed inside of a 5 mm EndoCatch bag and brought out through the right lateral port site. The liver bed was aspirated. Cautery was used to control hemostasis. Then, 3 grams of Javier was placed to help control some of oozing from the liver bed as well. Once that was completed, the abdomen was desufflated. Skin incisions were closed #4-0 Vicryl subcuticular sutures. The abdomen cleaned and dried. Steri-Strips, 4x4 and tape were applied, thus ending the procedure.
== END 2019-10-21 13:45 | disposition home or self-care (01) ==
LOC: M SDC 06:06
PROVIDERS: ATTEND Surgery
DX: K80.10 Calculus of gallbladder with chronic cholecystitis without obstruction (principal); Z88.2 Allergy status to sulfonamides; Z79.899 Other long term (current) drug therapy
CPT/HCPCS: 47562; 81025; 88304; J1100; J1885; J2250; J2270; J2405; J3010

== ENCOUNTER 2019-10-30 17:10 | Inpatient (IN) | payer OTHER ==
[~2019-10-30] VITALS: Ht 160 cm; Wt 88.4 kg
[2019-10-30 17:02] VITALS: BP 135/80
[~2019-10-30 17:10] MED LIST changes: -AUGM875T28 PO; -D31000TA2 PO; -IBUP1TAB7 PO; -LEVO500T3 PO; -ONDA-83 PO
[2019-10-30] MEDS ORDERED: PERCOCET 5MG/325MG TAB PO PRN (18:15)
[2019-10-30] MEDS ORDERED: KETOROLAC 30 MG/ML 1ML VIAL IV PRN (18:15)
[2019-10-30] MEDS ORDERED: ONDANSETRON 4MG/2ML VIAL IV PRN (18:15)
[2019-10-30] MEDS ORDERED: ACETAMINOPHEN TAB 650MG DOSE (2X325MG) PO PRN (18:15)
[2019-10-30] MEDS: LR 1,000 ML IV SCH (19:15)
[2019-10-30] MEDS ORDERED: ONDA-83 PO (19:41)
[2019-10-30] MEDS ORDERED: IBUP1TAB7 PO (19:41)
[2019-10-30] MEDS ORDERED: D31000TA2 PO (19:41)
[2019-10-30] MEDS: SENOKOT S TAB PO SCH (20:04)
[2019-10-30] MEDS: AMPICILLIN SOD/SULBACTAM SOD 3 GM in D5W MINI-BAG PLUS 100 ML IV SCH (20:04)
--- NOTE | 2019-10-30 20:58 | HPEPDOC ---
General Surgery H&P Date of Admission Oct 30, 2019 Attending Physician: HAMMAD BROWN MD History and Physical CHIEF COMPLAINT: fever postop Nurse Note: HERE TODAY FOR F/U S/P LAP TRISHA. SHE STATES HER INCISIONS ARE HEALING WELL AND THE STERI STRIPS ARE MOSTLY OFF EXCEPT 2. SHE STATES SHE IS MOVING HER BOWELS WELL AND VOIDING WELL. SHE DENIES ANY NAUSEA OR VOMITING. SHE C/O TENDERNESS AT THE SURGERY SITE. SHE ALSO STATES SHE HAS HAD AN ELEVATED TEMP SINCE SURGERY MAINLY AT NIGHT. SHE USES TYLENOL AND IBUPROFEN FOR PAIN. SHE STATES HER TEMP IS ALWAYS AT LEAST 100. Does the patient currently smoke? Smoking: Denies Smoking. 10/21/19 - Ra Lap Trisha 09/26/19 - Cholelithiasis 09/22/19 - Gallbladder US Subjective CC: Postoperative: cholecystectomy. HPI: Postoperative visit after cholecystectomy. Patient underwent robotic- assisted laparoscopic cholecystectomy for symptomatic cholelithiasis on 10/21/[address] Pena she presents for postop checkup today and she reports intermittent fevers up to 101 since the surgery. She reports a vague right upper quadrant discomfort but is able to tolerate food. She denies any nausea, vomiting or bloating, severe diarrhea. She was initially seen by her nurse practitioner and had her worked up including labs drawn and followed up later with a CT abdomen and pelvis. I'm now seeing her to evaluate her with regards to the findings from her labs and imaging.. 1 week post op. Patient feeling mildly worse since surgery. Patient is currently not on any antibiotics. Does not require constant doses of narcotic pain medication. Pain is occasional and mild. Eating and drinking normally. Patient has less than 1 BM per day. Able to do ADL's. No bruising. No wound drainage. There is no odor. No swelling. Reports associated chills and fever, but denies associated decreased appetite, constipation, diarrhea, wound drainage and vomiting. Current Meds Prior to Visit: Folic Acid, Vitamin, Cinnamon, Vitamin D (Ergocalciferol) 50 mcg (1999) Allergies: Sulfa PMH: Medical Problems: No Current Problems Surgical Hx: Rhinoplasty, Tubal Ligation, Tubal Reversal, Tonsillectomy Section - 2019 Lap Trisha - 10/21/2019 Anesthesia Complications: None Reviewed and updated. FH: Father: due to Heart Disease. Mother: due to Diabetes. Reviewed and updated. SH: Personal Habits: Smoking: Denies Smoking.Alcohol: Denies alcohol use.Drug Use: Denies Drug Use. Reviewed, no changes. ROS: Const: Reports chills and fever, but denies fatigue, weight gain and weight loss. GI: Reports RUQ abdominal pain, but denies constipation and diarrhea. Skin: Reports incision, but denies drainage, infections, rash and redness. Reviewed, no changes. Objective BP: 120/68 T: 98.7 Ht: 63" 5'3" Wt: 194lb 6oz Wt Prior: 198lb 4oz as of 09/26/19 Wt Dif: -3lb -14.0oz BMI: 34.4 IBW: 115 Wt k.168 Wt kg Prior: 89.926 as of 09/26/19 Wt kg Dif: -1.758 Exam: Const: No signs of acute distress present, not ill appearing. Head/Face: Normocephalic. No lesions present on inspection. Eyes: Conjunctivae pink and moist. No icterus of the sclerae bilaterally. ENMT: External nose exhibits no lesions. Lips: No lesions. Resp: Respiration rate is normal. No use of accessory muscles noted. Diaphragmatic excursion is normal. No wheezing or stridor. Chest expansion is symmetrical. Clear to auscultation bilaterally. Chest is normal to inspection and palpation. CV: Rate is regular. Rhythm is regular. No ectopic beats. Extremities: Peripheral circulation is normal with no evidence of clubbing or cyanosis. No edema of the lower limbs bilaterally. No varicosities noted. Abdomen: No bulging. The abdomen is nondistended and moderately obese. Umbilicus is normal. No visible herniations. Skin is normal. Abdominal incision: She has robotic/laparoscopic port sites along the line just above the umbilicus. No acti ve drainage. No erythema. Positive bowel sounds in all quadrants. Normal to percussion. Abdomen is soft, minimally distended. She is somewhat tender over the right lateral upper abdominal quadrant but no rebound or guarding. She is nontender in the left side of the abdomen. She is minimally tender at the epigastric area. No abdominal masses palpable. No palpable hernias. Post-Op w ound: Incision(s) appears clean, with no sign of drainage or infection . Skin: Skin warm and dry with no evidence of unusual rashes or suspicious lesions. Hair appears normal. Neuro: Oriented to person, place, situation and time. Data Review: 10/21/19 - Ra Lucretia Ferro She had a white cell count of 16,000. Her LFTs are normal including her total bilirubin AST, ALT and alkaline phosphatase. She had a CT of the abdomen and pelvis done showing a collection of the gallbladder fossa with mixed air and fluid Assessment #1: Hx [id number] Infection following a procedure, organ and space surgical site, sequela Care Plan: Comments : There is some suggestion of postoperative organ space infection of the gallbladder fossa following her cholecystectomy. She reports of intermittent fevers or chills and she does have leukocytosis and there is a collection on the CT so I will admit her to the hospital started on IV antibiotics and set her up for percutaneous drainage of the collection. I reviewed the operative report then he did have some bleeding at the liver surface for which he placed Javier so this could just be some infected hematoma. I will also set her up for a HIDA scan just to rule out a bile leak. This was communicated to the patient and she expresses understanding so I will admit her directly to the hospital. Vital Signs Vital Signs Date Time Temp Pulse Resp B/P (MAP) Pulse Ox O2 Delivery O2 Flow Rate FiO2 10/30/19 17:02 98.7 84 16 135/80 (98) 95 Room Air Home Medications Scheduled Cholecalciferol (Vitamin D3) (Vitamin D3) 1,000 Unit Tablet, 2,000 UNITS PO DAILY, (Reported) Cinnamon Bark (Cinnamon) 500 Mg Capsule, 500 MG PO DAILY, (Reported) No122/Iron/Folic Acid ( Multi Tablet) 1 Each Tablet, 1 TAB PO DAILY, (Reported) Scheduled PRN Ibuprofen (Ibuprofen) 800 Mg Tablet, 800 MG PO Q8H PRN for PAIN, (Reported) Ondansetron HCl (Ondansetron HCl) 4 Mg Tablet, 4 MG PO Q6H PRN for NAUSEA OR VOMITING, (Reported) Allergies Coded Allergies: Sulfa (Sulfonamide Antibiotics) (Verified Allergy, Intermediate, muscle and joint pain, 10/21/19) A-FIB/CHADSVASC A-FIB History Current/History of A-Fib/PAF?: No Current PO Anticoag Therapy: No HAMMAD BROWN MD 8, 2020 20:58
[2019-10-30 22:00] VITALS: BP 137/81
[2019-10-31] MEDS: AMPICILLIN SOD/SULBACTAM SOD 3 GM in D5W MINI-BAG PLUS 100 ML IV SCH ×4 (01:24→20:02)
[2019-10-31 06:00] VITALS: BP 137/81
[2019-10-31 06:35] LABS: BASO # 0.1 10^3/uL (0.0-0.2); BASO % 0.8 % (0.0-1.0); EOS # 0.3 10^3/uL (0.0-0.5); HEMATOCRIT 34.5 % (36.0-47.0); HEMOGLOBIN 11.1 g/dl (12.0-15.5); LYMPH # 2.6 10^3/uL (1.5-5.0); LYMPH % 17.1 % (24.0-44.0); MEAN CORPUSCULAR HEMOGLOBIN 29.5 pg (27.0-33.0); MEAN CORPUSCULAR HGB CONC 32.2 g/dl (32.0-36.5); MEAN CORPUSCULAR VOLUME 91.8 fl (80.0-96.0); MONO # 0.9 10^3/uL (0.0-0.8); MONO % 5.7 % (0.0-5.0); NEUTROPHILS # 10.8 10^3/uL (1.5-8.5); PLATELET COUNT, AUTOMATED 508 10^3/uL (150-450); RED BLOOD COUNT 3.76 10^6/uL (4.00-5.40); WHITE BLOOD COUNT 15.4 10^3/uL (4.0-10.0)
[2019-10-31 06:55] LABS: ALBUMIN 2.5 GM/DL (3.2-5.2); ALT/SGPT 21 U/L (12-78); BILIRUBIN,TOTAL 0.3 MG/DL (0.2-1.0); BLOOD UREA NITROGEN 13 MG/DL (7-18); CALCIUM LEVEL 8.5 MG/DL (8.5-10.1); CARBON DIOXIDE LEVEL 27 MEQ/L (21-32); CHLORIDE LEVEL 106 MEQ/L (98-107); CREATININE FOR GFR 0.71 MG/DL (0.55-1.30); GLOMERULAR FILTRATION RATE > 60.0 (>58); GLUCOSE, FASTING 104 MG/DL (70-100); POTASSIUM SERUM 4.2 MEQ/L (3.5-5.1); SODIUM LEVEL 141 MEQ/L (136-145); TOTAL PROTEIN 6.6 GM/DL (6.4-8.2)
[2019-10-31] MEDS: SENOKOT S TAB PO SCH ×2 (09:00→20:02)
[2019-10-31] MEDS: LR 1,000 ML IV SCH ×2 (09:01→20:50)
[2019-10-31] MEDS ORDERED: LIDOCAINE 1% MDV 20ML VIAL As Ordered ONE (11:18)
[2019-10-31] MEDS ORDERED: ISOVUE-300 61% 50ML VIAL As Ordered ONE (11:18)
[2019-10-31] MEDS ORDERED: MIDAZOLAM INJ 2MG/2ML VIAL (J2250 PER 1MG) As Ordered ONE (11:18)
[2019-10-31] MEDS ORDERED: fentaNYL 100 MCG/2 ML INJECTION (J3010) As Ordered ONE (11:18)
[2019-10-31] MEDS ORDERED: diphenhydrAMINE 50MG/ML VIAL (J1200) As Ordered ONE (11:19)
--- NOTE | 2019-10-31 12:28 | IRMSE ---
[facility] IR Moderate Sedation Eval. Date and Time Date: Oct 31, 2019 Time: 12:28 ASA Classification ASA Classification: II-Mild systemic disease Mallampati Score: II NPO: Yes Obstructive Sleep Apnea: No Interval Plan: moderate sedation RIKY ALMARAZ MD Oct 31, 2019 12:28
--- NOTE | 2019-10-31 12:31 | POST-OPPD ---
Postoperative Procedure Note Date Of Procedure: Oct 31, 2019 Time Of Procedure: 12:28 PREOPERATIVE DIAGNOSIS: gallbladder fossa collection status post cholecystectomy. Fever POSTOPERATIVE DIAGNOSIS: same FINDINGS: same PROCEDURE: transhepatic gallbladder fossa drain placement. Sample sent for culture and bilirubin. If this is a bile leak may consider internal external biliary stenting for biliary diversion and /or cystic duct embolization by IR. SURGEON: Tl ANESTHESIA: mod sed ESTIMATED BLOOD LOSS: < 5 ml COMPLICATIONS: none POSTOPERATIVE CONDITION: stable RIKY ALMARAZ MD Oct 31, 2019 12:30
[2019-10-31 13:30] VITALS: BP 138/80
[2019-10-31 14:00] VITALS: BP 154/84
[2019-10-31 14:25] LABS: BILIRUBIN,TOTAL BF 0.2 MG/DL (NOT ESTABLISHED); SOURCE, BODY FLUID TOT BILIRU OTHER
--- NOTE | 2019-10-31 15:49 | REP ---
HIDA SCAN: Following the intravenous administration of 5.5 millicuries technetium 99m Mebrofenin, multiple images of the right upper quadrant performed. Images are obtained for 1 hour. The patient has had laparoscopic cholecystectomy. There is diffuse homogeneous uptake throughout the liver. There is biliary excretion at 10 minutes post injection with biliary to bowel transit noted. No scintigraphic evidence of bile leak. Electronically Signed by Woody Matamoros MD 11/03/2019 10:28 P
--- NOTE | 2019-10-31 15:57 | IPNPDOC ---
Text Note Date of Service The patient was seen on 10/31/19. NOTE Patient reports mild discomfort over the right upper quadrant area. She underw ent percutaneous drainage of gallbladder fossa abscess following laparoscopic cholecystectomy a week ago. She denies a nausea, vomiting or bloating. Vitals MAXIMUM TEMPERATURE 100.4 at 6:00 this morning. Current temperature 98.8 at 1400 On examination Patient seen sitting up on the bed, relatively comfortable Skin is warm and dry Lips appear dry Lungs are clear to auscultation bilaterally without wheezing Abdomen is soft, minimally distended, mildly tender over the right upper quadrant area. She has a percutaneous drain coursing through the right upper quadrant with brownish, bloody, purulent fluid draining from it. No bile tinge Impression Postop cholecystectomy Postoperative abscess at the gallbladder fossa status post percutaneous drainage She also had a HIDA scan done and on looking at it there is no obvious leak, clinically no bile leakage is noted from the drainage. I will await the final read on the HIDA scan. If she does have a leak she will need an ERCP done. Continue with current antibiotics, await microbiology results. VS,Medbone, I+O VS, Medbone, I+O Laboratory Tests 10/31/19 06:10 Vital Signs Date Time Temp Pulse Resp B/P (MAP) Pulse Ox O2 Delivery O2 Flow Rate FiO2 10/31/19 15:28 17 Room Air 10/31/19 14:00 98.8 86 154/84 (107) 96 10/31/19 12:03 2 I&O- Last 24 Hours up to 6 AM 10/31/19 06:00 Intake Total 1125 ml Output Total 750 ml Balance 375 ml HAMMAD BROWN MD Oct 31, 2019 15:57
[2019-10-31 22:00] VITALS: BP 128/76
[2019-11-01] MEDS: AMPICILLIN SOD/SULBACTAM SOD 3 GM in D5W MINI-BAG PLUS 100 ML IV SCH ×2 (02:09→08:49)
[2019-11-01 06:00] VITALS: BP 138/82
[2019-11-01 08:41] LABS: BASO # 0.1 10^3/uL (0.0-0.2); BASO % 0.4 % (0.0-1.0); EOS # 0.3 10^3/uL (0.0-0.5); HEMATOCRIT 35.7 % (36.0-47.0); HEMOGLOBIN 11.3 g/dl (12.0-15.5); LYMPH # 2.8 10^3/uL (1.5-5.0); LYMPH % 19.1 % (24.0-44.0); MEAN CORPUSCULAR HEMOGLOBIN 29.7 pg (27.0-33.0); MEAN CORPUSCULAR HGB CONC 31.7 g/dl (32.0-36.5); MEAN CORPUSCULAR VOLUME 93.7 fl (80.0-96.0); MONO # 0.7 10^3/uL (0.0-0.8); MONO % 4.9 % (0.0-5.0); NEUTROPHILS # 10.4 10^3/uL (1.5-8.5); NEUTROPHILS % 70.1 % (36.0-66.0); PLATELET COUNT, AUTOMATED 592 10^3/uL (150-450); RED BLOOD COUNT 3.81 10^6/uL (4.00-5.40); WHITE BLOOD COUNT 14.8 10^3/uL (4.0-10.0)
[2019-11-01] MEDS: SENOKOT S TAB PO SCH ×2 (08:50→21:00)
[2019-11-01] MEDS: LR 1,000 ML IV SCH (08:50)
[2019-11-01] MEDS: PIPERACILLIN/TAZOBACTAM SOD 3.375 GM in D5W MINI-BAG PLUS 50 ML IV SCH ×2 (12:07→18:02)
--- NOTE | 2019-11-01 13:05 | IPNPDOC ---
Text Note Date of Service The patient was seen on 11/01/19. NOTE Patient reports feeling much better today. Minimal discomfort at the tube site. Vitals MAXIMUM TEMPERATURE 100.6 yesterday evening Current temperature 98.8 at 0600 On examination Patient seen sitting up on the bed, much more comfortable in appearance Skin is warm and dry Lips appear dry Lungs are clear to auscultation bilaterally without wheezing Abdomen is soft, nondistended, mildly tender over the drain tube site. She has a percutaneous drain coursing through the right upper quadrant with thinning, bloody fluid, less purulent in apperance Impression Postop cholecystectomy Postoperative abscess at the gallbladder fossa status post percutaneous drainage HIDA scan is negative for bile leak. I switched to zosyn to increase coverage (mostly pseudomonas, and gram negative rods, anaerobes). Nothing is growing on the drain culture yet. I anticipate probably would be able to go home this weekend so long as she does not spike any further febrile episode. VS,Fishbone, I+O VS, Fishbone, I+O Laboratory Tests 11/01/19 08:20 Vital Signs Date Time Temp Pulse Resp B/P (MAP) Pulse Ox O2 Delivery O2 Flow Rate FiO2 11/01/19 06:00 98.6 71 18 138/82 (100) 96 Room Air 10/31/19 12:03 2 I&O- Last 24 Hours up to 6 AM 11/01/19 06:00 Intake Total 2995 ml Output Total 1090 ml Balance 1905 ml HAMMAD BRWON MD Nov 01, 2019 13:05
[2019-11-01 14:00] VITALS: BP 132/82
[2019-11-01 22:00] VITALS: BP 152/86
[2019-11-02] MEDS: PIPERACILLIN/TAZOBACTAM SOD 3.375 GM in D5W MINI-BAG PLUS 50 ML IV SCH ×3 (00:07→12:50)
[2019-11-02] MEDS: LR 1,000 ML IV SCH ×2 (00:07→12:50)
[2019-11-02 05:00] VITALS: BP 129/72
[2019-11-02 08:59] LABS: BASO # 0.1 10^3/uL (0.0-0.2); BASO % 0.9 % (0.0-1.0); EOS # 0.5 10^3/uL (0.0-0.5); EOS % 4.1 % (0.0-3.0); HEMATOCRIT 33.7 % (36.0-47.0); HEMOGLOBIN 10.6 g/dl (12.0-15.5); LYMPH # 2.6 10^3/uL (1.5-5.0); LYMPH % 22.4 % (24.0-44.0); MEAN CORPUSCULAR HEMOGLOBIN 29.1 pg (27.0-33.0); MEAN CORPUSCULAR HGB CONC 31.5 g/dl (32.0-36.5); MEAN CORPUSCULAR VOLUME 92.6 fl (80.0-96.0); MONO # 0.7 10^3/uL (0.0-0.8); MONO % 5.8 % (0.0-5.0); NEUTROPHILS # 7.3 10^3/uL (1.5-8.5); NEUTROPHILS % 63.8 % (36.0-66.0); PLATELET COUNT, AUTOMATED 608 10^3/uL (150-450); RED BLOOD COUNT 3.64 10^6/uL (4.00-5.40); WHITE BLOOD COUNT 11.4 10^3/uL (4.0-10.0)
[2019-11-02] MEDS: SENOKOT S TAB PO SCH (09:00)
[2019-11-02 14:00] VITALS: BP 142/80
[2019-11-02] MEDS ORDERED: LEVO500T3 PO (15:29)
[2019-11-02] MEDS ORDERED: AUGM875T28 PO (16:36)
--- NOTE | 2019-11-03 08:47 | IPN ---
DATE: 11/02/2019 HISTORY: The patient had undergone a laparoscopic cholecystectomy almost 2 weeks ago. She returned with some right upper quadrant pain and fever and was found to have an abscess in the gallbladder bed. Dr. Boothe placed a drain, which has been putting out some turbid fluid. Cultures have grown Escherichia (E) coli and the sensitivities are available. The patient feels better today and is asking about discharge. Vital signs show that she has been afebrile over the past 24 hours. Pulse is in the 70s and low 80s and her blood pressure is good. Intake and output show that yesterday she had 3 liters in and 3 liters out. Her drain had 30 mL yesterday, and there is a very small amount in the bag today. PHYSICAL EXAMINATION: The patient's abdomen is somewhat obese but soft. The drain site is nicely dressed in the upper abdomen. The drain tubing and the bag have a small amount of pink brown turbid fluid. Laboratory studies today show white count of 11,000 with a differential showing 64% neutrophils, 22% lymphocytes, 6% monocytes, and 4% eosinophils. Hemoglobin is 11 with a hematocrit of 34, and the platelet count is 608,000. Microbiology showed heavy growth of E-coli with the E-coli sensitive to all tested drugs. IMPRESSION: The patient is doing well. She is tolerating a diet and denies any significant pain. She is afebrile and her white count is falling toward normal. I see no reason why she could not be discharged on oral antibiotics at this point. PLAN: The patient was instructed regarding emptying the drainage bag at home. I will provide her a prescription for Augmentin twice daily for a week. She can take a diet as tolerated. She should contact our office on 11/04/2019, to arrange a followup toward the end of the week, at which time, we might be able to remove her drain. She is to call the office for any problems and is to avoid any strenuous physical activity. ROSA MARIA
--- NOTE | 2019-11-06 12:01 | REP ---
IR Drainage catheter placement in the gallbladder fossa using ultrasound and fluoroscopy guidance. IR moderate sedation. Clinical information: Status post laparoscopic cholecystectomy with new fluid and air collection in the gallbladder fossa. Fever and pain. Physician: Dr. Boothe. Procedure: The patient was advised of the benefits, risks and alternatives of the procedure and informed consent was obtained. The time-out was performed with verification of the patient's name, MRN, site of procedure and type of procedure to be performed. Moderate sedation was performed by the physician including the presence of an independent trained observer who assisted in monitoring the patient's level of consciousness and physiologic status. Following the administration of Versed and Fentanyl, the physician spent 30 minutes of continuous face to face time with the patient. The patient was placed in the supine position on the angio table. Ultrasound right upper quadrant demonstrates fluid and air collection in the gallbladder fossa. After marking the overlying skin, the patient was prepped and draped in the usual sterile fashion. The soft tissues overlying the puncture site were anesthetized with lidocaine. Through this anesthetized region, an 18 gauge Chiba needle was advanced into the collection under ultrasound guidance. Injection of contrast confirmed contained abscess cavity. No communication with intra or extrahepatic biliary ducts. An Amplatz wire was advanced into the fluid collection over which a 10-Arabic APDL was advanced. A fluid specimen was aspirated. The catheter was then locked, sutured in position and placed to gravity drainage. The specimen was labeled with the patient's name, medical record number and sent to the lab for further analysis. The patient tolerated the procedure well and was returned to PRU in stable condition. EBL: Less than 5 ml. Complications: None. Conclusion: 1. Ultrasound demonstrates fluid and air collection in the gallbladder fossa. 2. Successful 10-Arabic right upper quadrant drain placement. Sample was sent for Gram stain, culture and bile. If there is persistent accumulation and concern for a bile leak, the patient may benefit from internal external biliary stenting and/or IR cystic duct embolization. 3. Patient to follow up in IR clinic in 4 weeks for ongoing drain management. Thank you this referral. Cc Dr. Willams Electronically Signed by Alyssa Boothe MD 11/06/2019 12:00 P
--- NOTE | 2019-11-08 13:48 | DS.PDOC ---
Discharge Summary General Date of Admission Oct 30, 2019 at 18:45 Date of Discharge October Attending Physician: HAMMAD BROWN MD Discharge Summary PROCEDURES PERFORMED DURING STAY: Ultrasound-guided drainage of gallbladder fossa abscess. ADMITTING DIAGNOSES: 1. Postop gallbladder fossa abscess. DISCHARGE DIAGNOSES: 1. Postop gallbladder fossa abscess status post drainage. COMPLICATIONS/CHIEF COMPLAINT: Post Op Abscess. HISTORY OF PRESENT ILLNESS: Patient underwent laparoscopic cholecystectomy a week before and now presents with intermittent fevers and on CT showing what most likely has an infected collection at the gallbladder fossa. HOSPITAL COURSE: Patient was admitted to the hospital and started on Unasyn 3 g IV every 6 hours for coverage of the abscess. She underwent ultrasound-guided drainage of the abscess the following day with drainage of bloody purulent material. She also had a HIDA scan performed to rule out bile leakage which was negative. Initial lab shows a leukocytosis of 15.4 on admission which has gone down to 7.4 on day of discharge. Patient was started on clear liquids and then regular food which she tolerated. Postdrainage she had some mild temperature spikes the night of the procedure which is taper down. She has been afebrile 48 hours prior to her discharge.. DISCHARGE MEDICATIONS: Please see below. ALLERGIES: Please see below. PHYSICAL EXAMINATION ON DISCHARGE: VITAL SIGNS: Please see below. GENERAL: Comfortable HEENT: [place] palpebral conjunctiva, anicteric sclerae, mildly try NECK: Supple, no lymphadenopathy, no jugular venous distention CARDIOVASCULAR EXAMINATION:. Heart rate and rhythm with no murmurs RESPIRATORY EXAMINATION: Clear breath sounds auscultation bilaterally without wheezing ABDOMINAL EXAMINATION: Soft, nontender, nondistended. Right lower quadrant drain with bloody mildly purulent fluid which is starting to get thinner in appearance EXTREMITIES: No significant edema SKIN: No jaundice NEUROLOGICAL EXAMINATION: Awake, alert and oriented LABORATORY DATA: Please see below. IMAGING: Fluoroscopic guidance, HIDA scan PROGNOSIS: Good ACTIVITY: As tolerated. DIET: As tolerated DISCHARGE PLAN: Patient would be discharged home on antibiotics. She will follow up next week in the clinic to possibly have the drainage catheter removed. Patient has been trained by the nurses on routine drain care DISPOSITION: 01 Home, Self-Care. DISCHARGE INSTRUCTIONS: 1. Record output of the drainage catheter. Change dressings as needed. ITEMS TO FOLLOWUP ON ON OUTPATIENT: 1. Microbiology results. DISCHARGE CONDITION: Stable. TIME SPENT ON DISCHARGE: Greater than 30 minutes. Vital Signs/I&Os Vital Signs Date Time Temp Pulse Resp B/P (MAP) Pulse Ox O2 Delivery O2 Flow Rate FiO2 11/02/19 14:00 98.5 81 18 142/80 (100) 99 Room Air Microbiology Microbiology 10/31/19 Gram Stain - Final, Complete 10/31/19 Abscess Culture - Final, Complete Escherichia Coli Discharge Medications Scheduled Amoxicillin/Potassium Clav (Augmentin 875-125 Tablet) 1 Each Tablet, 1 TAB PO BID Cholecalciferol (Vitamin D3) (Vitamin D3) 1,000 Unit Tablet, 2,000 UNITS PO DAILY, (Reported) Cinnamon Bark (Cinnamon) 500 Mg Capsule, 500 MG PO DAILY, (Reported) No122/Iron/Folic Acid ( Multi Tablet) 1 Each Tablet, 1 TAB PO DAILY, (Reported) Scheduled PRN Ibuprofen (Ibuprofen) 800 Mg Tablet, 800 MG PO Q8H PRN for PAIN, (Reported) Ondansetron HCl (Ondansetron HCl) 4 Mg Tablet, 4 MG PO Q6H PRN for NAUSEA OR VOMITING, (Reported) Allergies Coded Allergies: Sulfa (Sulfonamide Antibiotics) (Verified Allergy, Intermediate, muscle and joint pain, 10/21/19) HAMMAD BROWN MD Nov 08, 2019 13:48
== END 2019-11-02 17:03 | disposition home or self-care (01) | DRG 721 ==
LOC: M MSPAV 18:45
PROVIDERS: ADMIT Surgery; ATTEND Surgery
PROC: 0F943ZZ Drainage of Gallbladder, Percutaneous Approach (ICD-10-PCS; principal; 2019-10-31 10:00)
DX: T81.43XA Infection following a procedure, organ and space surgical site, initial encounter (principal); Z88.2 Allergy status to sulfonamides; Z79.899 Other long term (current) drug therapy; Y83.6 Removal of other organ (partial) (total) as the cause of abnormal reaction of the patient, or of later complication, without mention of misadventure at the time of the procedure

== ENCOUNTER → 2019-10-30 | Outpatient (CLI) | payer OTHER ==
[~2019-10-30] MED LIST changes: +AUGM875T28 PO; +D31000TA2 PO; +IBUP1TAB7 PO; +ISOVUE-370 76% 100ML VIAL As Ordered ONE; +LEVO500T3 PO; +ONDA-83 PO
--- NOTE | 2019-10-31 02:02 | REP ---
REASON FOR EXAM: Right upper quadrant pain. Patient is status post recent cholecystectomy. On 09/22/2019, the ultrasound showed cholelithiasis and possible cholecystitis. I have been given information that since that exam, the patient has undergone cholecystectomy. CONTRAST: 100 mL Isovue-370. Lung bases are clear. In the postoperative gallbladder fossa, there is a 7.3 x 7.3 x 4 cm sized wall-enhancing abnormal air-fluid level. In the posterior segment of the right lobe of the liver, there are two additional abnormal oval-shaped fluid collections, one of which has an air-fluid level within it. The spleen, pancreas, adrenal glands, and kidneys are within normal limits. The intra-abdominal and intrapelvic bowel loops are within normal limits. There is thickening of the right lateroconal fascia. There is a small amount of free fluid in the right paracolic gutter. The abdominal aorta and para-aortic regions are within normal limits. The osseous structures are within normal limits. IMPRESSION: 1. Right upper quadrant abscesses, as described above, predominantly in the gallbladder fossa and within the posterior segment of the right lobe of the liver just deep to Yessenia's capsule of the liver. 2. Right guttural inflammatory changes, as described above. Electronically Signed by Calos Eubanks DO 10/31/2019 11:25 A
== END ==
LOC: M RAD 14:17
PROVIDERS: ATTEND Nurse Practitioner
DX: R50.9 Fever, unspecified (principal); R10.11 Right upper quadrant pain
CPT/HCPCS: 74177; Q9967

== ENCOUNTER → 2019-10-30 | Outpatient (CLI) | payer OTHER ==
[~2019-10-30] MED LIST changes: -ISOVUE-370 76% 100ML VIAL As Ordered ONE
[2019-10-30 09:44] LABS: HEMATOCRIT 36.6 % (36.0-47.0); HEMOGLOBIN 11.6 g/dl (12.0-15.5); MEAN CORPUSCULAR HGB CONC 31.7 g/dl (32.0-36.5); MEAN CORPUSCULAR VOLUME 94.6 fl (80.0-96.0); PLATELET COUNT, AUTOMATED 513 10^3/uL (150-450); RED BLOOD COUNT 3.87 10^6/uL (4.00-5.40)
[2019-10-30 12:21] LABS: ALBUMIN 2.8 GM/DL (3.2-5.2); ALT/SGPT 26 U/L (12-78); AMYLASE 31 U/L (25-115); BILIRUBIN,DIRECT 0.1 MG/DL (0.0-0.2); BILIRUBIN,TOTAL 0.2 MG/DL (0.2-1.0); BLOOD UREA NITROGEN 16 MG/DL (7-18); CALCIUM LEVEL 9.4 MG/DL (8.5-10.1); CARBON DIOXIDE LEVEL 30 MEQ/L (21-32); CHLORIDE LEVEL 105 MEQ/L (98-107); CREATININE FOR GFR 0.82 MG/DL (0.55-1.30); GLOMERULAR FILTRATION RATE > 60.0 (>58); GLUCOSE, FASTING 136 MG/DL (70-100); LIPASE 122 U/L (73-393); POTASSIUM SERUM 4.1 MEQ/L (3.5-5.1); SODIUM LEVEL 142 MEQ/L (136-145); TOTAL PROTEIN 7.3 GM/DL (6.4-8.2)
== END ==
LOC: M LAB 09:01
PROVIDERS: ATTEND Nurse Practitioner
DX: R50.9 Fever, unspecified (principal); R10.11 Right upper quadrant pain

== ENCOUNTER → 2019-11-26 | Outpatient (POV) | payer OTHER ==
[~2019-11-26] MED LIST changes: +AUGM875T28 PO; +D31000TA2 PO; +IBUP1TAB7 PO; +LEVO500T3 PO; +ONDA-83 PO
--- NOTE | 2019-12-26 11:54 | IRPN ---
[facility] IR Progress Note IR Progress Note DATE: Nov 26, 2019 Patient agreed to this telephone consultation. Duration of call 5 minutes. FOLLOW-UP: 44-year-old female status post cholecystectomy, presented with collection in the gallbladder fossa. Drain was placed by myself on October 30. Patient's symptoms resolved post drain placement. No further right upper quadrant pain, nausea, vomiting, fevers or chills. The catheter was removed by surgery. IMPRESSION: 44-year-old female with, gallbladder fossa collection status post cholecystectomy, treated by percutaneous catheter drainage. Patient has responded appropriately. Catheter was already removed by surgery. No further fo llow-up scheduled with IR. Thank you for this referral Cc Dr. Willams Allergies Coded Allergies: Sulfa (Sulfonamide Antibiotics) (Verified Allergy, Intermediate, muscle and joint pain, 10/21/19) RIKY ALMARAZ MD Dec 26, 2019 11:54
== END ==
LOC: M TMIRPOV 08:00
PROVIDERS: ATTEND Radiology Diagnostic Radiology
DX: Z48.815 Encounter for surgical aftercare following surgery on the digestive system (principal); Z88.2 Allergy status to sulfonamides

== ENCOUNTER → 2020-06-28 | Outpatient (REF) | payer OTHER | LOC: M WUC 19:07 | PROVIDERS: ATTEND Physician Assistant | DX: J02.9 Acute pharyngitis, unspecified (principal) ==

== ENCOUNTER → 2020-09-09 | Outpatient (CLI) | payer OTHER ==
[2020-09-09 16:21] LABS: HEMATOCRIT 42.8 % (36.0-47.0); HEMOGLOBIN 13.8 g/dl (12.0-15.5); MEAN CORPUSCULAR HEMOGLOBIN 30.8 pg (27.0-33.0); MEAN CORPUSCULAR HGB CONC 32.2 g/dl (32.0-36.5); MEAN CORPUSCULAR VOLUME 95.5 fl (80.0-96.0); PLATELET COUNT, AUTOMATED 287 10^3/uL (150-450); RED BLOOD COUNT 4.48 10^6/uL (4.00-5.40); WHITE BLOOD COUNT 11.2 10^3/uL (4.0-10.0)
[2020-09-09 16:49] LABS: ALBUMIN 3.5 GM/DL (3.2-5.2); ALT/SGPT 24 U/L (12-78); AMYLASE 18 U/L (25-115); BILIRUBIN,TOTAL 0.5 MG/DL (0.2-1.0); BLOOD UREA NITROGEN 9 MG/DL (7-18); CALCIUM LEVEL 8.4 MG/DL (8.5-10.1); CARBON DIOXIDE LEVEL 30 MEQ/L (21-32); CHLORIDE LEVEL 104 MEQ/L (98-107); CREATININE FOR GFR 0.78 MG/DL (0.55-1.30); GLOMERULAR FILTRATION RATE > 60.0 (>58); GLUCOSE, FASTING 99 MG/DL (70-100); LIPASE 64 U/L (73-393); POTASSIUM SERUM 3.8 MEQ/L (3.5-5.1); SODIUM LEVEL 138 MEQ/L (136-145); TOTAL PROTEIN 7.4 GM/DL (6.4-8.2)
[2020-09-09 18:37] LABS: ATYPICAL LYMPH 5 % (0-5); EOSINOPHILS 1 % (0-3); LYMPHOCYTES 23 % (16-44); MONOCYTES 4 % (0-5); NEUTROPHILS 49 % (28-66); PLATELET ESTIMATE NORMAL (NORMAL)
== END ==
LOC: M WUC 11:43
PROVIDERS: ATTEND Physician Assistant
DX: R19.7 Diarrhea, unspecified (principal)

== ENCOUNTER → 2020-12-07 | Outpatient (REF) | payer OTHER ==
[2020-12-07 14:27] LABS: ALBUMIN 3.6 GM/DL (3.2-5.2); ALT/SGPT 21 U/L (12-78); BILIRUBIN,TOTAL 0.3 MG/DL (0.2-1.0); BLOOD UREA NITROGEN 15 MG/DL (7-18); CALCIUM LEVEL 8.7 MG/DL (8.5-10.1); CARBON DIOXIDE LEVEL 27 MEQ/L (21-32); CHLORIDE LEVEL 107 MEQ/L (98-107); CHOLESTEROL LEVEL 149 MG/DL (<200); CHOLESTEROL RISK RATIO 5.137 (<5); CREATININE FOR GFR 0.71 MG/DL (0.55-1.30); GLOMERULAR FILTRATION RATE > 60.0 (>58); GLUCOSE, FASTING 112 MG/DL (70-100); HDL CHOLESTEROL 29 MG/DL (>40); LDL CHOLESTEROL 48 MG/DL (<100); NON-HDL-C 120 MG/DL; POTASSIUM SERUM 4.2 MEQ/L (3.5-5.1); SODIUM LEVEL 139 MEQ/L (136-145); TRIGLYCERIDES LEVEL 358 MG/DL (<150)
[2020-12-07 14:47] LABS: HEMOGLOBIN A1c 6.1 %
== END ==
LOC: M LABDRWAD 12:46
PROVIDERS: ATTEND Family Medicine
DX: R73.03 Prediabetes (principal)

== ENCOUNTER → 2021-02-08 | Outpatient (CLI) | payer OTHER ==
--- NOTE | 2021-02-08 13:57 | REPMRS ---
Patient History The patient states she has not had a clinical breast exam in over a year. No known family history of cancer. Tomosynthesis is performed. Volpara breast density is b. Tyrer-zi lifetime risk of breast cancer 11.2%. Patient states no breast complaints today. Patient has signed MRS History Sheet. Digital Woman Screen Mammo: February 08, 2021 - Exam #: [id number] Bilateral CC and MLO view(s) were taken. Technologist: Kojo Uribeologist Prior study comparison: August 19, 2016, bilateral digital mammo screening bilat, performed at [facility]. June 25, 2015, bilateral digital mammo screening bilat, performed at [facility]. FINDINGS: There are scattered fibroglandular densities. There has been no change in the appearance of the mammogram from the prior studies. There is a mild amount of residual fibroglandular tissue which is fairly symmetric. There is no interval development of dominant mass, architectural distortion, or clustered microcalcification suggestive of malignancy. Assessment: BI-RADS/ACR category 1 mammogram. Negative Mammogram. Recommendation Routine screening mammogram in 1 year (for women over age 40). This mammogram was interpreted with the aid of an FDA-approved computer-aided dectection system. Electronically Signed By: Woody Matamoros MD 02/08/21 [id number]
== END ==
LOC: M WHC 12:29
PROVIDERS: ATTEND Family Medicine
DX: Z12.31 Encounter for screening mammogram for malignant neoplasm of breast (principal)

== ENCOUNTER 2021-06-14 19:13 | Emergency (ER) | payer OTHER ==
[~2021-06-14] VITALS: Ht 160 cm; Wt 95.5 kg
[~2021-06-14 19:13] MED LIST changes: -LEVO500T3 PO; +LEVO500T4 PO
[2021-06-14 22:15] VITALS: BP 168/88
== END 2021-06-14 22:18 | disposition home or self-care (01) ==
LOC: M ED 19:13
DX: M79.671 Pain in right foot (principal); V49.40XA Driver injured in collision with unspecified motor vehicles in traffic accident, initial encounter; E11.9 Type 2 diabetes mellitus without complications; K21.9 Gastro-esophageal reflux disease without esophagitis; E78.5 Hyperlipidemia, unspecified; Z88.2 Allergy status to sulfonamides; Z79.899 Other long term (current) drug therapy; Y92.9 Unspecified place or not applicable; Y93.9 Activity, unspecified; Y99.9 Unspecified external cause status

== ENCOUNTER → 2021-11-24 | Outpatient (CLI) | payer OTHER ==
[~2021-11-24] MED LIST changes: -D31000TA2 PO; +LEVO1TAB39 PO; -LEVO500T4 PO; +VITA100093 PO
[2021-11-24 21:36] LABS: HEMOGLOBIN A1c 5.9 %
== END ==
LOC: M ADAMS 15:18
PROVIDERS: ATTEND Family Medicine
DX: R73.03 Prediabetes (principal)

== ENCOUNTER → 2021-11-29 | Outpatient (CLI) | payer OTHER | LOC: M WUC 11:49 | PROVIDERS: ATTEND Nurse Practitioner Family | DX: M79.672 Pain in left foot (principal); M79.671 Pain in right foot ==

== ENCOUNTER → 2022-01-12 | Outpatient (CLI) | payer OTHER | LOC: M RAD 14:39 | PROVIDERS: ATTEND Physician Assistant | DX: J32.8 Other chronic sinusitis (principal) ==

== ENCOUNTER → 2022-03-26 | Outpatient (REF) | payer OTHER | LOC: M WUC 17:23 | PROVIDERS: ATTEND Student in an Organized Health Care Education/Training Program | DX: R30.0 Dysuria (principal) ==

== ENCOUNTER → 2022-04-29 | Outpatient (CLI) | payer OTHER ==
[2022-05-06 10:08] LABS: D002-IGE D FARINAE MITE <0.10 kU/L (Class 0); E001-IGE CAT EPITHELIUM/DANDER <0.10 kU/L (Class 0); E005-IGE DOG DANDER/HAIR/EPITH <0.10 kU/L (Class 0); G002-IGE BERMUDA GRASS <0.10 kU/L (Class 0); G003-IGE ORCHARD GRASS <0.10 kU/L (Class 0); G006-IGE TIMOTHY GRASS <0.10 kU/L (Class 0); IGE HICKORY, WHITE <0.10 kU/L (Class 0); M003-IGE D pteronyssinus <0.10 kU/L (Class 0); M006-IGE ALTERNARIA alternata <0.10 kU/L (Class 0); M007-IGE BOTRYTIS cinerea <0.10 kU/L (Class 0); M009-IGE FUSARIUM proliferatum <0.10 kU/L (Class 0); T001-IGE MAPLE/BOX ELDER <0.10 kU/L (Class 0); T003-IGE COMMON SILVER BIRCH <0.10 kU/L (Class 0); T005-IGE BEECH (AMERICAN) <0.10 kU/L (Class 0); T007-IGE OAK, WHITE <0.10 kU/L (Class 0); T008-IGE ELM, AMERICAN WHITE <0.10 kU/L (Class 0); T014-IGE COTTONWOOD <0.10 kU/L (Class 0); T015-IGE ASH, WHITE <0.10 kU/L (Class 0); T016-IGE PINE, WHITE <0.10 kU/L (Class 0); W001-IGE RAGWEED, SHORT <0.10 kU/L (Class 0); W003-IGE RAGWEED, GIANT <0.10 kU/L (Class 0); W006-IGE MUGWORT <0.10 kU/L (Class 0); W009-IGE PLANTAIN,ENGLISH <0.10 kU/L (Class 0); W010-IGE LAMB'S QUARTER <0.10 kU/L (Class 0); W012-IGE GOLDENROD <0.10 kU/L (Class 0)
== END ==
LOC: M WUC 14:34
PROVIDERS: ATTEND Allergy & Immunology Allergy
DX: J31.0 Chronic rhinitis (principal)

== ENCOUNTER 2022-09-24 09:51 | Emergency (ER) | payer OTHER ==
[~2022-09-24] VITALS: Ht 160 cm; Wt 99.7 kg
[2022-09-24] MEDS ORDERED: AZEL23SP (11:04)
[2022-09-24 11:13] LABS: BASO % 0.5 % (0.0-1.0); EOS # 0.1 10^3/uL (0.0-0.5); EOS % 1.8 % (0.0-3.0); HEMATOCRIT 45.5 % (36.0-47.0); HEMOGLOBIN 15.7 g/dl (12.0-15.5); LYMPH # 0.9 10^3/uL (1.5-5.0); LYMPH % 13.6 % (24.0-44.0); MEAN CORPUSCULAR HEMOGLOBIN 30.4 pg (27.0-33.0); MEAN CORPUSCULAR HGB CONC 34.5 g/dl (32.0-36.5); MEAN CORPUSCULAR VOLUME 88.2 fl (80.0-96.0); MONO # 0.6 10^3/uL (0.0-0.8); MONO % 9.8 % (2.0-8.0); NEUTROPHILS # 4.9 10^3/uL (1.5-8.5); PLATELET COUNT, AUTOMATED 277 10^3/uL (150-450); RED BLOOD COUNT 5.16 10^6/uL (4.00-5.40); WHITE BLOOD COUNT 6.6 10^3/uL (4.0-10.0)
[2022-09-24] MEDS ORDERED: ISOVUE-370 76% 100ML VIAL As Ordered ONE (11:20)
[2022-09-24 11:36] LABS: ALBUMIN 3.8 G/DL (3.2-5.2); BILIRUBIN,DIRECT 0.3 MG/DL (<0.4); BILIRUBIN,TOTAL 0.9 MG/DL (0.3-1.2); TOTAL PROTEIN 7.1 G/DL (5.7-8.2)
[2022-09-24 12:40] VITALS: BP 124/76
== END 2022-09-24 12:48 | disposition home or self-care (01) ==
LOC: M ED 09:51
DX: A08.4 Viral intestinal infection, unspecified (principal); K21.9 Gastro-esophageal reflux disease without esophagitis; E78.5 Hyperlipidemia, unspecified; Z88.2 Allergy status to sulfonamides; Z79.810 Long term (current) use of selective estrogen receptor modulators (SERMs); Z79.899 Other long term (current) drug therapy
CPT/HCPCS: 36415; 74177; 80047; 80076; 81001; 83690; 85025; 87086; 99284; Q9967

== ENCOUNTER → 2022-09-27 | Outpatient (REF) | payer OTHER ==
[~2022-09-27] MED LIST changes: +AZEL23SP
[2022-09-27 16:37] LABS: ALBUMIN 3.9 G/DL (3.2-5.2); ALKALINE PHOSPHATASE 80 U/L (46-116); ALT/SGPT 67 U/L (7.0-40); AST/SGOT 41 U/L (<34); BILIRUBIN,TOTAL 0.6 MG/DL (0.3-1.2); BLOOD UREA NITROGEN 22 MG/DL (9-23); CALCIUM LEVEL 9.8 MG/DL (8.5-10.1); CARBON DIOXIDE LEVEL 29 MMOL/L (20-31); CHLORIDE LEVEL 95 MMOL/L (98-107); CREATININE FOR GFR 1.01 MG/DL (0.55-1.30); GLOMERULAR FILTRATION RATE > 60.0 (>58); GLUCOSE, FASTING 124 MG/DL (60-100); IRON (FE) 67 UG/DL (50-170); PERCENT SATURATION 21.7 % (13.2-45.0); POTASSIUM SERUM 3.5 MMOL/L (3.5-5.1); SODIUM LEVEL 134 MMOL/L (136-145); TOTAL IRON BINDING CAPACITY 309 UG/DL (250-425); TOTAL PROTEIN 7.5 G/DL (5.7-8.2)
[2022-09-27 16:39] LABS: FERRITIN 346.8 NG/ML (7.3-270.7)
[2022-09-27 16:56] LABS: HEPATITIS B SURFACE ANTIGEN NEGATIVE (NEGATIVE)
[2022-09-27 17:18] LABS: HEPATITIS B CORE ANTIBODY IGM NEGATIVE (NEGATIVE); HEPATITIS C VIRUS ABY INDEX 0.1 INDEX (<0.8)
== END ==
LOC: M LABDRWAD 15:55
PROVIDERS: ATTEND Registered Nurse
DX: R94.5 Abnormal results of liver function studies (principal)

== ENCOUNTER → 2022-11-02 | Outpatient (REF) | payer OTHER | LOC: M LAB REF 17:59 | PROVIDERS: ATTEND Registered Nurse | DX: Z12.4 Encounter for screening for malignant neoplasm of cervix (principal) ==

== ENCOUNTER → 2022-11-09 | Outpatient (REF) | payer OTHER ==
[2022-11-09 16:19] LABS: ALBUMIN 3.5 G/DL (3.2-5.2); ALKALINE PHOSPHATASE 57 U/L (46-116); ALT/SGPT 13 U/L (7.0-40); AST/SGOT 9 U/L (<34); BILIRUBIN,DIRECT < 0.1 MG/DL (<0.4); BILIRUBIN,TOTAL 0.3 MG/DL (0.3-1.2); IRON (FE) 52 UG/DL (50-170); PERCENT SATURATION 16.9 % (13.2-45.0); TOTAL IRON BINDING CAPACITY 307 UG/DL (250-425); TOTAL PROTEIN 6.5 G/DL (5.7-8.2)
[2022-11-09 16:20] LABS: IMMUNOGLOBULIN A 271.5 MG/DL (40-350)
[2022-11-09 16:34] LABS: HEPATITIS B SURFACE ANTIGEN NEGATIVE (NEGATIVE)
[2022-11-09 16:53] LABS: HEPATITIS C VIRUS ABY INDEX 0.11 INDEX (<0.8)
[2022-11-09 16:54] LABS: HEPATITIS B CORE ANTIBODY IGM NEGATIVE (NEGATIVE)
[2022-11-11 17:07] LABS: ANCA-ATYPICAL <1:20 titer (Neg:<1:20); ANTI-MITOCHONDRIAL ANTIBODY <20.0 Units (0.0-20.0); ANTINUCLEAR ANTIBODIES DIRECT Negative (Negative); CERULOPLASMIN 25.5 mg/dL (19.0-39.0); CYTOPLASMIC NEUTROP AB ANCA-C <1:20 titer (Neg:<1:20); LIVER-KIDNEY MICROSOMAL ABY <20.1 Units (0.0-20.0); PERINUCLEAR AB ANCA-P <1:20 titer (Neg:<1:20); TISSUE TRANSGLUTAMINASE IgA <2 U/mL (0-3)
== END ==
LOC: M PLALAB 14:36
PROVIDERS: ATTEND Internal Medicine Gastroenterology
DX: R74.01 Elevation of levels of liver transaminase levels (principal)

== ENCOUNTER → 2022-11-15 | Outpatient (CLI) | payer OTHER | LOC: M RAD 07:57 | PROVIDERS: ATTEND Internal Medicine Gastroenterology | DX: R11.2 Nausea with vomiting, unspecified (principal); K76.0 Fatty (change of) liver, not elsewhere classified; Z90.49 Acquired absence of other specified parts of digestive tract ==

== ENCOUNTER → 2022-11-24 | Outpatient (REF) | payer OTHER ==
[2022-11-24 14:30] LABS: BASO # 0.1 10^3/uL (0.0-0.2); BASO % 0.7 % (0.0-1.0); EOS # 0.3 10^3/uL (0.0-0.5); EOS % 3.8 % (0.0-3.0); HEMATOCRIT 39.8 % (36.0-47.0); HEMOGLOBIN 12.9 g/dl (12.0-15.5); LYMPH # 1.8 10^3/uL (1.5-5.0); LYMPH % 24.6 % (24.0-44.0); MEAN CORPUSCULAR HEMOGLOBIN 30.6 pg (27.0-33.0); MEAN CORPUSCULAR HGB CONC 32.4 g/dl (32.0-36.5); MEAN CORPUSCULAR VOLUME 94.3 fl (80.0-96.0); MONO # 0.9 10^3/uL (0.0-0.8); MONO % 11.9 % (2.0-8.0); NEUTROPHILS # 4.3 10^3/uL (1.5-8.5); NEUTROPHILS % 58.5 % (36.0-66.0); PLATELET COUNT, AUTOMATED 313 10^3/uL (150-450); RED BLOOD COUNT 4.22 10^6/uL (4.00-5.40); WHITE BLOOD COUNT 7.4 10^3/uL (4.0-10.0)
[2022-11-24 15:10] LABS: ALBUMIN 3.5 G/DL (3.2-5.2); ALKALINE PHOSPHATASE 58 U/L (46-116); ALT/SGPT 19 U/L (7.0-40); AST/SGOT 15 U/L (<34); BILIRUBIN,TOTAL 0.5 MG/DL (0.3-1.2); BLOOD UREA NITROGEN 15 MG/DL (9-23); CALCIUM LEVEL 8.7 MG/DL (8.5-10.1); CARBON DIOXIDE LEVEL 27 MMOL/L (20-31); CHLORIDE LEVEL 100 MMOL/L (98-107); CHOLESTEROL LEVEL 122 MG/DL (<200); CHOLESTEROL RISK RATIO 4.14 (<5); CREATININE FOR GFR 0.69 MG/DL (0.55-1.30); GLOMERULAR FILTRATION RATE > 60.0 (>58); GLUCOSE, FASTING 133 MG/DL (60-100); HDL CHOLESTEROL 29.4 MG/DL (>40); LDL CHOLESTEROL 40.8 MG/DL (<100); NON-HDL-C 92.6 MG/DL; POTASSIUM SERUM 4.3 MMOL/L (3.5-5.1); SODIUM LEVEL 137 MMOL/L (136-145); TOTAL PROTEIN 6.4 G/DL (5.7-8.2); TRIGLYCERIDES LEVEL 259 MG/DL (<150)
== END ==
LOC: M LABDRWAD 12:20
PROVIDERS: ATTEND Nurse Practitioner Family
DX: R73.03 Prediabetes (principal)

== ENCOUNTER → 2024-10-28 | Outpatient (REF) | payer OTHER ==
[~2024-10-28] MED LIST changes: +KP F1200 PO; +OMEP-173 PO; +ONDA-282 PO; -ONDA4TAB6 PO
== END ==
LOC: M LAB REF 13:11
PROVIDERS: ATTEND Physician Assistant
DX: R30.0 Dysuria (principal)

== ENCOUNTER → 2024-11-20 | Outpatient (CLI) | payer OTHER ==
[2024-11-20 14:04] LABS: ALT/SGPT 22.0 U/L (7.0-40); AST/SGOT 21.0 U/L (<34); CALCIUM LEVEL 9.5 MG/DL (8.5-10.1); CARBON DIOXIDE LEVEL 30.0 MMOL/L (20-31); CHLORIDE LEVEL 102.0 MMOL/L (98-107); CREATININE FOR GFR 0.82 MG/DL (0.55-1.30); GLOMERULAR FILTRATION RATE 86.6 (>51); POTASSIUM SERUM 4.4 MMOL/L (3.5-5.1); SODIUM LEVEL 143.0 MMOL/L (136-145)
[2024-11-20 14:42] LABS: ESTIMATED AVERAGE GLUCOSE 134.0 MG/DL (60-110)
== END ==
LOC: M WUC 11:12
PROVIDERS: ATTEND Registered Nurse
DX: R73.03 Prediabetes (principal)

== ENCOUNTER → 2024-11-20 | Outpatient (CLI) | payer OTHER | LOC: M WUC 11:14 | PROVIDERS: ATTEND Nurse Practitioner Family | DX: M25.552 Pain in left hip (principal); R73.03 Prediabetes ==